=== PATIENT | female | born 1990 | race Asian ===

== ENCOUNTER 2020-08-29 15:42 | Emergency (ER) | payer OTHER, SELFPAY ==
[2020-08-29 16:07] VITALS: BP 136/95; PULSE 100; RESP 16; TEMP 36.8; O2SAT 100; BMI 31.2
--- NOTE | 2020-08-29 16:18 | DI.US.S_ITS ---
PROCEDURE: US OB <= 14 WEEKS FETUS INDICATIONS: POSITIVE AND CRAMPING OUTSIDE/PRIOR DATING DATA: Last menstrual period (LMP): 07/11/2020 . LMP-based estimated date of delivery (PETER): 04/17/2021 . First dating scan (date and location): 08/29/2020 . Estimated date of delivery (PETER) from first dating scan: Not applicable. TECHNIQUE: Real-time scanning was performed of the fetus and maternal pelvic organs, with image documentation. Endovaginal scanning was also performed to better visualize the fetus and maternal ovaries. COMPARISON: None. FINDINGS: Embryo: Intrauterine gestational sac is visualized measuring 4 mm corresponding to 5 weeks 1 day. No pole is identified. No definitive yolk sac. No heart tones. Measurement variability in dating: +/- 4 weeks by LMP, +/- 7 days by mean sac diameter (use before 6 weeks gestation if crown-rump length not able to be measured), +/- 5 days by crown-rump length (up to 8 weeks 6 days gestation), +/- 7 days by crown-rump length (up to 13 weeks 6 days gestation). Maternal organs: Ovaries demonstrate what appears to be a left corpus luteal cyst. In addition, there is appearance of a left intramural fibroid measuring 9.6 x 6.5 x 6.0 mm. Limited images through the kidneys demonstrate no hydronephrosis. REFERENCE THRESHOLD NUMBERS DELETE FROM FINAL REPORT ?-hCG levels and endovaginal scanning: * Should see gestational sac if >6398-8000 IU/L. * Single hCG level, regardless of value cannot distinguish b/w ectopic and IUP. * If hCG level <3000, do not treat for ectopic, to avoid harming possible viable IUP. * If hCG level >3000, most likely non-viable IUP if a sac is not visualized. Get followup hCG AND pelvic US before treating for ectopic . * Any recommended followup: favor short-term US rather than serial hCG levels. Small percentage of ectopics may have hCG changes that mimic IUP or sAb. Gestational age and endovaginal scannin-6-7 rule of thumb * Should see gestational sac by 5 weeks EGA * Should see yolk sac by 6 weeks EGA * Should see embryo by 7 weeks EGA [place] [employer] consensus statement: recommendations for reporting: * Definite ectopic : extra-uterine GS with YS, possibly embryo. * Probably ectopic : extra-uterine sac-like structure or adnexal mass. * of unknown location: no visible IUP or ectopic. o If single hCG level is 3000 or more: viable intrauterine gestation is unlikely but cannot be definitively excluded. o If pt is hemodynamically stable, a single hCG level should not be used to distinguish ectopic from intrauterine , or determining MTX Rx. o hCG and 7-10 day US followup (preferred) until definitive diagnosis. o Most ectopic pregnancies have hCG levels <3000 and often <1000, but is variable and does not predict rupture. * Probable intra-uterine : intra-uterine sac-like structure with no yolk sac or embryo, normal adnexa. * Definite intra-uterine : intra-uterine GS with yolk sac, possible embryo. SRU consensus statement Jul 2012: Findings suspicious but not diagnostic for early failure: * CRL <7 mm and no heart motion. * MGSD 16-24 mm and no embryo seen. * No embryo 7-13 days after US that showed GS without yolk sac. * No embryo 7-10 days after US that showed GS with yolk sac. * Absence of embryo 6 weeks or more after LMP. * Empty amniotic sac adjacent to yolk sac. * Large yolk sac of 7 mm or more. * Small sac size: MGSD minus CRL is < 5 mm. * Sustained bradycardia <80 bpm. Findings diagnostic for early failure: * CRL 7 mm or more and no heart motion. * MGSD 25 mm or more and no embryo seen. * No embryo seen 14 days or more after US showed a GS without yolk sac. * No embryo seen 11 days or more after US showed a GS with yolk sac. Nuchal translucency: abnormal at >3 mm between 10-14 weeks EGA IMPRESSION: 1. Intrauterine gestational sac measuring 5 weeks 1 day. No visualized pole or heart tones. Recommend correlation to beta-hCG levels in short interval imaging follow-up for continued evaluation of possible progression versus blighted ovum. 2. Uterine fibroid. Dictated by: Shanda Richards M.D. on 08/29/2020 at 16:31 Approved by: Shanda Richards M.D. on 08/29/2020 at 16:33
[2020-08-29 16:39] LABS: Add Manual Diff / Slide Review NO; Basophils Absolute Auto 100 /uL (0-100); Basophils Percent Auto 0.7 % (0-2); Eosinophils Absolute Auto 100 /uL (0-450); Hemoglobin 13.4 g/dL (12.0-16.0); Lymphocytes Absolute Auto 1800 /uL (1100-4500); Lymphocytes Percent Auto 23.8 % (25-40); Mean Corpuscular HGB Conc 33.4 % (30-36); Mean Corpuscular Hemoglobin 28.8 PG (26-34); Mean Corpuscular Volume 86.1 fL (80-100); Monocytes Absolute Auto 500 /uL (0-900); Monocytes Percent Auto 6.8 % (3-14); Neutrophils Absolute Auto 5200 /uL (1500-7000); Neutrophils Percent Auto 67.7 % (50-75); Platelet Count 298 X10^3/uL (150-400); Red Blood Cell Count 4.65 X10^6/uL (4.0-5.2); Red Cell Distribution Width 14.4 % (11.6-14.8); White Blood Cell Count 7.7 X10^3/uL (4.5-11.0)
--- NOTE | 2020-08-29 16:41 | ED_ITS ---
HPI - Abdominal Pain <SUE Ahmadi - Last Filed: 08/29/20 18:40> General Chief Complaint: Abdominal Pain Stated Complaint: CRAMPING Time Seen by Provider: 08/29/20 15:56 Source: patient Mode of arrival: Ambulatory History of Present Illness HPI narrative: 30yo female , presents to the emergency department for uterine cramping. She states she had a positive test approximately 3 days ago, she was two weeks late from the start of her menstrual cycle (estimating approximately 6 weeks at this point). Patient states she has a history of having a miscarriage in the past is concerned that this may be happening again. She denies any vaginal bleeding or discharge. Does have some intermittent nausea without vomiting. States the cramping is intermittent and in the middle of her lower abdomen. She denies any other symptoms such as fever, chills, chest pain, shortness of breath, or any other concerns. She has an OB appointment on Sep [address] Virgen. Review of Systems <SUE Ahmadi - Last Filed: 08/29/20 18:40> Review of Systems Narrative: REVIEW OF SYSTEMS: GENERAL: Denies fever or chills. HENT: No head trauma. CARDIOVASCULAR: No chest pain. RESPIRATORY: No shortness of breath or cough. GASTROINTESTINAL: Complains of abdominal pain, see HPI GENITOURINARY: No flank pain, urinary incontinence, hesitancy, frequency, or dysuria. Reports uterine cramping. MUSCULOSKELETAL: No pain, weakness, or trauma. INTEGUMENTARY: No rash. Patient History <SUE Ahmadi - Last Filed: 08/29/20 18:40> Medical History (Updated 08/29/20 @ 17:58 by SUE Ahmadi) No significant medical problems Social History Smoking Status: Never smoker Smoking Status: Never smoker Substance Use Type: does not use Exam <SUE Ahmadi - Last Filed: 08/29/20 18:40> Initial Vital Signs Initial Vital Signs: Vital Signs Temperature 98.2 F 08/29/20 16:07 Pulse Rate 100 H 08/29/20 16:07 Respiratory Rate 16 08/29/20 16:07 Blood Pressure 136/95 H 08/29/20 16:07 Pulse Oximetry 100 08/29/20 16:07 PHYSICAL EXAMINATION: GENERAL: Well groomed, alert, and cooperative. Pleasant, answers questions appropriately. HENT: Normocephalic, atraumatic. Hearing intact. Oral mucosa is pink and moist. EYES: Conjunctiva pink, sclera white, no periorbital swelling. CARDIOVASCULAR: Regular rate. RESPIRATORY: Normal respiratory rate, trachea midline, airway patent. No stridor, nasal flaring or accessory muscle use. . GASTROINTESTINAL: Bowel sounds normoactive. Abdomen is soft and non-tender. No organomegaly, no palpable masses. GENITALURINARY: No flank tenderness. MUSCULOSKELETAL: Normal gait and coordination. Equal tone and mass bilaterally. SKIN: Warm, dry, soft, appropriate color for ethnicity. No lesions, rashes, or wounds to visualized areas. NEURO: Alert and Oriented X 3. Good coordination. <Leonard Macdonald DO - Last Filed: 08/29/20 18:41> Initial Vital Signs Initial Vital Signs: Vital Signs Temperature 98.2 F 08/29/20 16:07 Pulse Rate 100 H 08/29/20 16:07 Respiratory Rate 16 08/29/20 16:07 Blood Pressure 136/95 H 08/29/20 16:07 Pulse Oximetry 100 08/29/20 16:07 Course <SUE Ahmadi - Last Filed: 08/29/20 18:40> Orders Ordered: ED Orders 08/29/20 16:18 US OB <= 14 weeks fetus Stat 08/29/20 16:30 ABO RH Type Stat Complete Blood Count AUTO DIFF Stat Comprehensive Metabolic Panel Stat HCG Quantitative /Beta subunit Stat Vital Signs Vital signs: Vital Signs - 8 hr 08/29/20 16:07 08/29/20 18:07 Temperature 98.2 F Pulse Rate 100 H 90 Respiratory Rate 16 16 Blood Pressure 136/95 H 112/79 Pulse Oximetry 100 99 <DO Nuno Evans Last Filed: 08/29/20 18:41> Orders Ordered: ED Orders 08/29/20 16:18 US OB <= 14 weeks fetus Stat 08/29/20 16:30 ABO RH Type Stat Complete Blood Count AUTO DIFF Stat Comprehensive Metabolic Panel Stat HCG Quantitative /Beta subunit Stat Vital Signs Vital signs: Vital Signs - 8 hr 08/29/20 16:07 08/29/20 18:07 Temperature 98.2 F Pulse Rate 100 H 90 Respiratory Rate 16 16 Blood Pressure 136/95 H 112/79 Pulse Oximetry 100 99 MDM - Abdominal Pain <ANNALISE AhmadiP - Last Filed: 08/29/20 18:40> Medical Records Attestation: I reviewed the patient's medical records. Lab Data Attestation: I reviewed the patient's lab results. Result diagrams: 08/29/20 16:30 08/29/20 16:30 Labs: Lab Results 08/29/20 08/29/20 08/29/20 Range/Units 16:30 16:30 16:30 WBC 7.7 (4.5-11.0) X10^3/uL RBC 4.65 (4.0-5.2) X10^6/uL Hgb 13.4 (12.0-16.0) g/dL Hct 40.0 (36-46) % MCV 86.1 (80-100) fL MCH 28.8 (26-34) PG MCHC 33.4 (30-36) % RDW 14.4 (11.6-14.8) % Plt Count 298 (150-400) X10^3/uL Neut % (Auto) 67.7 (50-75) % Lymph % (Auto) 23.8 L (25-40) % [place] % (Auto) 6.8 (3-14) % Eos % (Auto) 1.0 L (2-4) % Baso % (Auto) 0.7 (0-2) % Neut # (Auto) 5200 (5645-5126) /uL Lymph # (Auto) 1800 (5048-3651) /uL [place] # (Auto) 500 (0-900) /uL Eos # (Auto) 100 (0-450) /uL Baso # (Auto) 100 (0-100) /uL Sodium 138 (137-145) mmol/L Potassium 3.5 (3.4-5.1) mmol/L Chloride 106 (98-107) mmol/L Carbon Dioxide 26 (22-32) mmol/L BUN 12 (7-17) mg/dL Creatinine 0.60 (0.52-1.04) mg/dL Estimated GFR > 60.0 (>60) mL/min BUN/Creatinine Ratio 20.0 (6-22) Glucose 105 H (70-100) mg/dL Calcium 9.4 (8.4-10.2) mg/dL Total Bilirubin 0.5 (0.2-1.3) mg/dL AST 22 (14-36) IU/L ALT 19 (<35) IU/L Alkaline Phosphatase 59 (38-126) U/L Total Protein 8.5 H (6.3-8.2) g/dL Albumin 4.5 (3.5-5.0) g/dL Globulin 4.0 (1.7-4.1) g/dL Albumin/Globulin Ratio 1.1 (1.0-2.8) HCG, Quant 1403 mIU/mL Blood Type O Negative Point of care testing: Point of Care Testing Test Results Positive Urine Dip Bedside Urine Glucose Negative Bedside Urine Bilirubin - Negative Bedside Urine Ketone - Negative Urine Specific [place] 1.015 Bedside Urine Occult Blood - Negative Bedside Urine pH 6.0 Bedside Urine Protein - Negative Bedside Urine Urobilinogen - Negative Bedside Urine Nitrite - Negative Bedside Urine Leukocytes - Negative Esterase Imaging Data US - FAMILY SERVICES SPECIALIST: Radiologist's Impression: [address] [id number] ReportSigned Patient: Cathryn Williamson RMR#: [id number]: 1990Acct:[id number]/Sex: 30 / FDate of Service: 08/29/20Loc: EDAccession Number: [id number] Procedure: US OB <= 14 weeks fetus Ordering Provider: Christine Michael PROCEDURE: US OB <= 14 WEEKS FETUS INDICATIONS: POSITIVE AND CRAMPING OUTSIDE/PRIOR DATING DATA: Last menstrual period (LMP): 07/11/2020 . LMP-based estimated date of delivery (PETER): 04/17/2021 . First dating scan (date and location): 08/29/2020 . Estimated date of delivery (PETER) from first dating scan: Not applicable. TECHNIQUE: Real-time scanning was performed of the fetus and maternal pelvic organs, with image documentation. Endovaginal scanning was also performed to better visualize the fetus and maternal ovaries. COMPARISON: None. FINDINGS: Embryo: Intrauterine gestational sac is visualized measuring 4 mm corresponding to 5 weeks 1 day. No pole is identified. No definitive yolk sac. No heart tones. Measurement variability in dating: +/- 4 weeks by LMP, +/- 7 days by mean sac diameter (use before 6 weeks gestation if crown-rump length not able to be measured), +/- 5 days by crown-rump length (up to 8 weeks 6 days gestation), +/- 7 days by crown-rump length (up to 13 weeks 6 days gestation). Maternal organs: Ovaries demonstrate what appears to be a left corpus luteal cyst. In addition, there is appearance of a left intramural fibroid measuring 9.6 x 6.5 x 6.0 mm. Limited images through the kidneys demonstrate no hydronephrosis. REFERENCE THRESHOLD NUMBERS DELETE FROM FINAL REPORT ?-hCG levels and endovaginal scanning: * Should see gestational sac if >1258-6319 IU/L. * Single hCG level, regardless of value cannot distinguish b/w ectopic and IUP. * If hCG level <3000, do not treat for ectopic, to avoid harming possible viable IUP. * If hCG level >3000, most likely non-viable IUP if a sac is not visualized. Get followup hCG AND pelvic US before treating for ectopic . * Any recommended followup: favor short-term US rather than serial hCG levels. Small percentage of ectopics may have hCG changes that mimic IUP or sAb. Gestational age and endovaginal scannin-6-7 rule of thumb * Should see gestational sac by 5 weeks EGA * Should see yolk sac by 6 weeks EGA * Should see embryo by 7 weeks EGA [place] [employer] consensus statement: recommendations for reporting: * Definite ectopic : extra-uterine GS with YS, possibly embryo. * Probably ectopic : extra-uterine sac-like structure or adnexal mass. * of unknown location: no visible IUP or ectopic. o If single hCG level is 3000 or more: viable intrauterine gestation is unlikely but cannot be definitively excluded. o If pt is hemodynamically stable, a single hCG level should not be used to dist inguish ectopic from intrauterine , or determining MTX Rx. o hCG and 7-10 day US followup (preferred) until definitive diagnosis. o Most ectopic pregnancies have hCG levels <3000 and often <1000, but is variable and does not predict rupture. * Probable intra-uterine : intra-uterine sac-like structure with no yolk sac or embryo, normal adnexa. * Definite intra-uterine : intra-uterine GS with yolk sac, possible embryo. SRU consensus statement Jul 2012: Findings suspicious but not diagnostic for early failure: * CRL <7 mm and no heart motion. * MGSD 16-24 mm and no embryo seen. * No embryo 7-13 days after US that showed GS without yolk sac. * No embryo 7-10 days after US that showed GS with yolk sac. * Absence of embryo 6 weeks or more after LMP. * Empty amniotic sac adjacent to yolk sac. * Large yolk sac of 7 mm or more. * Small sac size: MGSD minus CRL is < 5 mm. * Sustained bradycardia <80 bpm. Findings diagnostic for early failure: * CRL 7 mm or more and no heart motion. * MGSD 25 mm or more and no embryo seen. * No embryo seen 14 days or more after US showed a GS without yolk sac. * No embryo seen 11 days or more after US showed a GS with yolk sac. Nuchal translucency: abnormal at >3 mm between 10-14 weeks EGA IMPRESSION: 1. Intrauterine gestational sac measuring 5 weeks 1 day. No visualized pole or heart tones. Recommend correlation to beta-hCG levels in short interval imaging follow-up for continued evaluation of possible progression versus blighted ovum. 2. Uterine fibroid. Dictated by: Shanda Richards M.D. on 08/29/2020 at 16:31 Approved by: Shanda Richards M.D. on 08/29/2020 at 16:33 MDM Narrative Medical decision making narrative: 30-year-old female presenting to em ergency department after a positive urine test with cramping over the past few days. Differential includes normal cramping versus implantation cramping verses threatened miscarriage. Patient's ultrasound shows an IUP with a gestational sac dated at 5weeks 1 day. No heart beat or pole, however, I discussed with patient that this may be too early in the to be able to see this. We discussed the importance of follow-up for possible repeat ultrasound and HCG. Laboratory work within normal limits, no vaginal bleeding at this time. ED precautions given for new or worsening symptoms. Patient agreed to plan of care verbalized understanding. <Leonard Macdonald, DO - Last Filed: 08/29/20 18:41> Lab Data Labs: Lab Results 08/29/20 08/29/20 08/29/20 Range/Units 16:30 16:30 16:30 WBC 7.7 (4.5-11.0) X10^3/uL RBC 4.65 (4.0-5.2) X10^6/uL Hgb 13.4 (12.0-16.0) g/dL Hct 40.0 (36-46) % MCV 86.1 (80-100) fL MCH 28.8 (26-34) PG MCHC 33.4 (30-36) % RDW 14.4 (11.6-14.8) % Plt Count 298 (150-400) X10^3/uL Neut % (Auto) 67.7 (50-75) % Lymph % (Auto) 23.8 L (25-40) % [place] % (Auto) 6.8 (3-14) % Eos % (Auto) 1.0 L (2-4) % Baso % (Auto) 0.7 (0-2) % Neut # (Auto) 5200 (8167-3327) /uL Lymph # (Auto) 1800 (9557-6399) /uL [place] # (Auto) 500 (0-900) /uL Eos # (Auto) 100 (0-450) /uL Baso # (Auto) 100 (0-100) /uL Sodium 138 (137-145) mmol/L Potassium 3.5 (3.4-5.1) mmol/L Chloride 106 (98-107) mmol/L Carbon Dioxide 26 (22-32) mmol/L BUN 12 (7-17) mg/dL Creatinine 0.60 (0.52-1.04) mg/dL Estimated GFR > 60.0 (>60) mL/min BUN/Creatinine Ratio 20.0 (6-22) Glucose 105 H (70-100) mg/dL Calcium 9.4 (8.4-10.2) mg/dL Total Bilirubin 0.5 (0.2-1.3) mg/dL AST 22 (14-36) IU/L ALT 19 (<35) IU/L Alkaline Phosphatase 59 (38-126) U/L Total Protein 8.5 H (6.3-8.2) g/dL Albumin 4.5 (3.5-5.0) g/dL Globulin 4.0 (1.7-4.1) g/dL Albumin/Globulin Ratio 1.1 (1.0-2.8) HCG, Quant 1403 mIU/mL Blood Type O Negative Point of care testing: Point of Care Testing Test Results Positive Urine Dip Bedside Urine Glucose Negative Bedside Urine Bilirubin - Negative Bedside Urine Ketone - Negative Urine Specific [place] 1.015 Bedside Urine Occult Blood - Negative Bedside Urine pH 6.0 Bedside Urine Protein - Negative Bedside Urine Urobilinogen - Negative Bedside Urine Nitrite - Negative Bedside Urine Leukocytes - Negative Esterase Discharge Plan Departure Patient Disposition: Home Clinical Impression: Qualifiers: Weeks of gestation: less than 8 weeks Qualified Code(s): Z3A.01 - Less than 8 w eeks gestation of Instructions: DI for -- Discomforts and Remedies Activity Restrictions/Additional Instructions: Thank you for entrusting me with your care today. As discussed, a developing gestational sac is seen in your uterus on ultrasound. Your ultrasound estimated due to be at 5 weeks 1 day, no pole or heart tones seen but this is quite early to see any of these features. Your hormone, HCG is 1403. I recommend you call your primary care provider or the OB listed below to schedule a follow-up appointment as often times a repeat blood draw and ultrasound is indicated. Return emergency department for any new or worsening symptoms. Referrals: Vaishnavi Wei MD [Physician] - Stand Alone Forms: Work Release Note <Leonard Macdonald, DO - Last Filed: 08/29/20 18:41> Cosign ED Attending Cosignature Attestation: Dr Macdonald Co-Sign Statement: I was available for consultation during this patient's emergency department visit. This chart is signed by myself for administrative purposes only. I did not have direct contact with this patient during this visit. They were seen independently by the APC.
[2020-08-29 17:08] LABS: Alanine Aminotransferase 19 IU/L (<35); Albumin 4.5 g/dL (3.5-5.0); Albumin Globulin Ratio 1.1 (1.0-2.8); Alkaline Phosphatase 59 U/L (38-126); Aspartate Aminotransferase 22 IU/L (14-36); Bilirubin Total 0.5 mg/dL (0.2-1.3); Blood Urea Nitrogen 12 mg/dL (7-17); Calcium 9.4 mg/dL (8.4-10.2); Carbon Dioxide 26 mmol/L (22-32); Chloride 106 mmol/L (98-107); Estimated Glomerular Filt Rate > 60.0 mL/min (>60); Glucose 105 mg/dL (70-100); HEMOLYSIS < 15 (0-50); Potassium 3.5 mmol/L (3.4-5.1); Sodium 138 mmol/L (137-145); Total Protein 8.5 g/dL (6.3-8.2)
[2020-08-29 17:25] LABS: HCG Quantitative /Beta subunit 1403 mIU/mL
[2020-08-29 18:07] VITALS: BP 112/79; PULSE 90; RESP 16; O2SAT 99
== END 2020-08-29 18:08 | disposition home or self-care (01) ==
PROVIDERS: Emergency Provider Nurse Practitioner
DX: O26.891 Other specified pregnancy related conditions, first trimester (principal); R10.9 Unspecified abdominal pain; Z3A.01 Less than 8 weeks gestation of pregnancy
CPT/HCPCS: 36415; 76801; 80053; 81003; 81025; 84702; 85025; 86900; 86901; 99283; 99284

== ENCOUNTER → 2020-09-12 10:51 | Outpatient (CLI) | payer OTHER, SELFPAY ==
--- NOTE | 2020-09-12 | DI.US.S_ITS ---
PROCEDURE: US OB <= 14 WEEKS FETUS INDICATIONS: INITIAL SIZING AND DATING OUTSIDE/PRIOR DATING DATA: Last menstrual period (LMP): 07/11/2020. LMP-based estimated date of delivery (PETER): 04/17/2021. First dating scan (date and location): This exam. Estimated date of delivery (PETER) from first dating scan: 05/02/2021. TECHNIQUE: Real-time scanning was performed of the fetus and maternal pelvic organs, with image documentation. COMPARISON: [facility], OB <= 14 WEEKS FETUS, 08/29/2020, 16:44. FINDINGS: Embryo: There is an IUP with the estimated gestational age 6 weeks 6 days. cardiac activity is present with heart rate of 132 BPM. There is an ill-defined heterogeneous area left of the gestational sac measuring 4.8 x 2.2 x 2.9 cm, suggesting subchorionic bleed. A small partially calcified fibroid is again noted in the left anterior inferior uterine wall. Measurement variability in dating: +/- 4 weeks by LMP, +/- 7 days by mean sac diameter (use before 6 weeks gestation if crown-rump length not able to be measured), +/- 5 days by crown-rump length (up to 8 weeks 6 days gestation), +/- 7 days by crown-rump length (up to 13 weeks 6 days gestation). Maternal organs: Ovaries are grossly normal. There is a corpus luteal cyst in the left ovary. Limited images through the kidneys demonstrate no hydronephrosis. IMPRESSION: 1. A single living intrauterine gestation with an estimated gestational age of 6 weeks 6 days corresponding to ultrasound PETER 05/02/2021. 2. A vague, 4.8 x 2.2 x 2.9 cm ill-defined heterogeneous area left of the gestational sac may represent a subchorionic hemorrhage. Recommend follow-up imaging to ensure resolution. 3. A small partially calcified fibroid is seen in the anterior left lower uterine wall. Dictated by: Riri Abarca M.D. on 09/12/2020 at 13:17 Approved by: Riri Abarca M.D. on 09/12/2020 at 13:30
== END ==
PROVIDERS: PCP Family Medicine; Referring Provider Family Medicine; Visit Provider Family Medicine
DX: Z36.87 Encounter for antenatal screening for uncertain dates (principal); O34.11 Maternal care for benign tumor of corpus uteri, first trimester; D25.9 Leiomyoma of uterus, unspecified; Z3A.01 Less than 8 weeks gestation of pregnancy
CPT/HCPCS: 76801; 76817

== ENCOUNTER → 2020-11-16 09:46 | Outpatient (CLI) | payer OTHER, MEDICAID, SELFPAY ==
--- NOTE | 2020-11-16 09:47 | DI.US.S_ITS ---
PROCEDURE: US OB LIMITED INDICATIONS: FOLLOW-UP SUB-CHORIONIC HEMORRHAGE OUTSIDE/PRIOR DATING DATA: Last menstrual period (LMP): 07/11/2020. LMP-based estimated date of delivery (PETER): 04/17/2021 . First dating scan (date and location): 08/29/2020, [facility] Estimated date of delivery (PETER) from first dating scan: 04/30/2020 . TECHNIQUE: Real-time scanning was performed of the fetus, with image documentation. COMPARISON: None. FINDINGS: A single living intrauterine gestation is present. Presentation: Transverse with head to maternal right. Placenta: Placental position is anterior , without previa. Amniotic fluid index: Subjectively normal heart rate: 145 beats per minute. Maternal cervical canal: 4.4 cm long. Normal lower limit is 2.5 cm. Estimated gestational age from initial scan: 16 weeks 3 days . No subchorionic hemorrhage noted. IMPRESSION: Living early 2nd trimester intrauterine measuring 16 weeks 3 days. No subchorionic hemorrhage noted. Dictated by: Сергей Gutierrez M.D. on 11/16/2020 at 11:14 Approved by: Сергей Gutierrez M.D. on 11/16/2020 at 11:17
== END ==
PROVIDERS: PCP Family Medicine; Referring Provider Family Medicine; Visit Provider Family Medicine
DX: Z34.92 Encounter for supervision of normal pregnancy, unspecified, second trimester (principal); Z3A.16 16 weeks gestation of pregnancy
CPT/HCPCS: 76815

== ENCOUNTER → 2021-01-08 09:04 | Outpatient (CLI) | payer OTHER, MEDICAID, SELFPAY ==
--- NOTE | 2021-01-08 | DI.US.S_ITS ---
PROCEDURE: US OB >= 14 WEEKS FETUS INDICATIONS: ANATOMY OUTSIDE/PRIOR DATING DATA: Last menstrual period (LMP): 07/11/20. LMP-based estimated date of delivery (PETER): 04/17/21 . First dating scan (date and location): This study . Estimated date of delivery (PETER) from first dating scan: 04/30/21 . TECHNIQUE: Real-time scanning was performed of the fetus, with image documentation and biometric measurements. Endovaginal scanning: Not needed COMPARISON: All prior OB ultrasound studies for this .. FINDINGS: General: A single living intrauterine gestation is present. Presentation: Breech. Placenta: Placental position is anterior , without previa. 13.1 Amniotic fluid index: 13.1 cm, normal range is 5-24 cm. heart rate: 145 beats per minute. Maternal cervical canal: 5.0 cm long. Normal lower limit is 2.5 cm. biometrics: Biparietal diameter: 5.6 cm, 22 weeks 6 days Head circumference: 21.4 cm, 23 weeks 3 days Abdominal circumference: 19.0 cm, 23 weeks 5 days Femur length: 4.0 cm, 22 weeks 6 days Estimated gestational age from initial scan: 24 weeks 0 days Composite gestational age from present scan: 23 weeks 2 days Estimated weight and percentile: 589 g, 17th percentile Measurement variability for biometric dating: +/- 7 days from 14 weeks to 15 weeks 6 days gestation, +/- 10 days from 16 weeks to 21 weeks 6 days gestation, +/- 2 weeks from 22 weeks to 27 weeks 6 days gestation, +/- 3 weeks for 28 weeks gestation or later. weight reference: 4500 g or EFW >90/95% is considered macrosomia or large for gestational age. EFW <10% is small for gestational age. EFW 5% or less is considered intra-uterine growth restriction. Anatomic survey: Neuro: Ventricles are non-dilated at less than 10 mm. Cisterna magna is normal at 3-11 mm. Cerebellum is normal in size and morphology. Nuchal skin fold: Normal at less than 6 mm between 14-21 weeks gestational age. Face: Nose and lips, facial profile are normal. Spine: No evidence for spina bifida. Heart: 4-chambered heart is present, with normal ventricular outflow tracts. Diaphragm: Diaphragm is intact. Stomach: Left-sided stomach is present. Kidneys: No hydronephrosis. Normal is less than 5 mm in 2nd trimester, less than 7 mm in 3rd trimester. Cord: 3-vessel cord has orthotopic insertion. Bladder: Normal in size. Extremities: All 4 extremities identified. IMPRESSION: Single living intrauterine gestation, appropriate interval growth, no anomaly seen, delivery date is projected to be centered on 04/30/21. Dictated by: Sam Kumar M.D. on 01/08/2021 at 13:03 Approved by: Sam Kumar M.D. on 01/08/2021 at 13:07
== END ==
PROVIDERS: PCP Family Medicine; Referring Provider Family Medicine; Visit Provider Family Medicine
DX: Z34.92 Encounter for supervision of normal pregnancy, unspecified, second trimester (principal); Z3A.24 24 weeks gestation of pregnancy
CPT/HCPCS: 76811

== ENCOUNTER → 2021-04-04 20:35 | Outpatient (ROUT) | payer OTHER, MEDICAID, SELFPAY | PROVIDERS: PCP Family Medicine; Visit Provider Family Medicine | DX: Z34.80 Encounter for supervision of other normal pregnancy, unspecified trimester (principal) | CPT/HCPCS: 87081 ==

== ENCOUNTER → 2021-04-06 11:34 | Outpatient (CLI) | payer OTHER, MEDICAID, SELFPAY ==
--- NOTE | 2021-04-06 11:35 | DI.US.S_ITS ---
PROCEDURE: US OB LIMITED INDICATIONS: SIZE < DATES OUTSIDE/PRIOR DATING DATA: Last menstrual period (LMP): 07/11/2021. LMP-based estimated date of delivery (PETER): 04/17/2021 . First dating scan (date and location): 08/29/2020 . Estimated date of delivery (PETER) from first dating scan: 04/30/2021 . TECHNIQUE: Real-time scanning was performed of the fetus, with image documentation and biometric measurements. Endovaginal scanning: No COMPARISON: [facility], OB >= 14 WEEKS FETUS, 01/08/2021, 9:20. [facility], OB LIMITED, 11/16/2020, 10:00. FINDINGS: General: A single living intrauterine gestation is present. Presentation: Vertex. Placenta: Placental position is anterior , without previa. Amniotic fluid index: 13.3 cm, normal range is 5-24 cm. heart rate: 140 beats per minute. Maternal cervical canal: Not well seen. biometrics: Biparietal diameter: 34 weeks 3 days Head circumference: 34 weeks 4 days Abdominal circumference: 35 weeks 3 days Femur length: 34 weeks 5 days Estimated gestational age from initial scan: 36 weeks 4 days Composite gestational age from present scan: 34 weeks 6 days Estimated weight and percentile: 2577 g, 17 percentile Measurement variability for biometric dating: +/- 7 days from 14 weeks to 15 weeks 6 days gestation, +/- 10 days from 16 weeks to 21 weeks 6 days gestation, +/- 2 weeks from 22 weeks to 27 weeks 6 days gestation, +/- 3 weeks for 28 weeks gestation or later. weight reference: 4500 g or EFW >90/95% is considered macrosomia or large for gestational age. EFW <10% is small for gestational age. EFW 5% or less is considered intra-uterine growth restriction. Other: Not applicable. IMPRESSION: Single living IUP redemonstrated and interval growth is within normal limits. Dictated by: Edy ALLEN Interpreted: Linus Mercado MD on 04/06/2021 at 13:07 Transcribed by: MILA on 04/06/2021 at 13:09 Approved by: Mikhail Staley M.D. on 04/06/2021 at 13:35
== END ==
PROVIDERS: PCP Family Medicine; Referring Provider Family Medicine; Visit Provider Family Medicine
DX: Z36.4 Encounter for antenatal screening for fetal growth retardation (principal); Z3A.34 34 weeks gestation of pregnancy
CPT/HCPCS: 76815

== ENCOUNTER 2021-04-25 23:58 | Inpatient (IN) | payer OTHER, MEDICAID, SELFPAY ==
[2021-04-26 00:52] VITALS: BP 129/66
--- NOTE | 2021-04-26 01:11 | P.HPOB_ITS ---
OB HPI Date/Time Date of admission: 04/26/21 Date Patient Seen: 04/26/21 History of Present Condition Chief complaint: REPEAT Narrative: Cathryn Williamson is a 31 year old at 39w1d with PETER of 05/02/21 per first trimester ultrasound. She presents with SROM with thin meconium at 23:00, approximately 2.5 hours ago, last meal was at that time as well. She was originally scheduled for a repeat today. Her course has been complicated by a first-trimester COVID infection that self- resolved. She also had a mild normocytic/normochromic anemia in her 3rd trimester that was treated with iron and GERD that was treated with famotidine. 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 She received RhoGAM at 28 weeks. LABS/IMAGING: ABO 0 negative, antibody negative on 09/08/2020 and 01/15/2021. Rubella immune. Hepatitis-B surface antigen negative. HIV negative.HSV 1 and 2 positive. GC/chlamydia negative. Treponemal antibody negative. Varicella titer positive. Pap smear plus HPV DNA negative on 10/13/2020. Urine culture negative on 10/13/2020. Hemoglobin/hematocrit 13.3/39.7 on 09/08/2020. Repeat hemoglobin/hematocrit 10.8/ 31.5 on 01/15/2021. TSH within normal limits. 1 hour Glucola negative on 01/15/2021. GBS negative on 04/04/2021. NIPT negative, female. ULTRASOUND HISTORY: 08/29/2020, IUP, 5w1d 09/12/2020: IUP, 6w6d, PETER 05/02/2021, subchorionic hemorrhage, uterine fibroid 11/16/2020: 16w3d, subchorionic hemorrhage resolved 01/08/2021: normal anatomy scan 04/06/2021: normal interval growth, MIREYA 13.3 cm, EFW 17th percentile. OBSTETRIC HISTORY: G1: 04/05/2014, 12 WGA, blighted ovum G2: 03/21/2016, 37 WGA via emergent primary secondary to distress wiith vertical abdominal scar and transverse uterine scar G3: Current GYNECOLOGICAL HISTORY: HSV II PAST MEDICAL HISTORY: GERD HSV I COVID infection PAST SURGICAL HISTORY: , 2015 FAMILY HISTORY: No defects. SOCIAL HISTORY: to [place]. Lives with , daughter and brother in law. 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 No alcohol, tobacco, or drugs. [facility] Medical History (Updated 09/13/20 @ 00:01 by ) No significant medical problems Social History Smoking Status: Never smoker Meds Home Medications and Allergies Home Medications Medication Instructions Recorded Confirmed Type Tylenol PM 1 tab PRN PRN 04/26/21 04/26/21 History esomeprazole magnesium 20 mg 20 mg PO DAILY 04/26/21 04/26/21 History capsule,delayed release (Nexium 24HR) ferrous gluconate 324 mg (38 mg 324 mg PO DAILY 04/26/21 04/26/21 History iron) tablet vitamin with calcium 1 tab PO DAILY 04/26/21 04/26/21 History no.72-iron 27 mg-folic acid 1 mg tablet ( Vitamins Plus Low Iron) valacyclovir 500 mg tablet 500 mg PO BID 04/26/21 04/26/21 History Allergies Allergy/AdvReac Type Severity Reaction Status Date / Time No Known Drug Allergies Allergy Verified 04/26/21 00:55 Review of Systems Review of Systems Narrative: Ten point review systems completed and found to be noncontributory except for items mentioned in HPI. Exam Vital Signs (past 8 hours): - 04/26/21 00:52 Blood Pressure 129/66 Narrative Exam Narrative: General: NAD Skin: Color unremarkable, no rash nor lesions HEENT: Neck supple with midline trachea Lungs: CTAB Heart: Normal rate, and regular rhythm, S1, S2 normal, no murmur, click, rub or gallop Abdomen: Gravid, soft, non-tender Extremities: No cord, no edema, no cyanosis Pelvis: Normal female external genitalia Presentation: vertex Cervix: closed, thick, high Monitoring: Variability: Moderate Baseline: 140s Accelerations: Present Decelerations: Absent Contractions: Every 8-18 minutes Strength: Moderate Objective Labs Result Diagrams: 04/26/21 00:45 Assessment and Plan Assessment and Plan Assessment and Plan narrative: 1. IUP at 39w1d 2. 3. SROM, thin meconium 4. Desire for repeat 5. Rh negative, status post Rhogam at 28 WGA 6. Anemia, gestational, treated with iron 7. HSV 2, treated with valacyclovir from 36 WGA 8. GERD Plan: Admit to Labor and delivery with routine orders. Plan for repeat . Patient is not in labor, heart rate is category 1. As patient has just eaten, will delay until 05:30 to allow for six hours of NPO. Will closely monitor during this time and proceed more expediently if needed. Questions answered, appropriate consents will be signed.
[2021-04-26 01:12] LABS: Add Manual Diff / Slide Review NO; Basophils Absolute Auto 0 /uL (0-100); Basophils Percent Auto 0.4 % (0-2); Eosinophils Absolute Auto 200 /uL (0-450); Eosinophils Percent Auto 1.9 % (2-4); Hematocrit 35.8 % (36-46); Hemoglobin 12.2 g/dL (12.0-16.0); Lymphocytes Absolute Auto 2200 /uL (1100-4500); Lymphocytes Percent Auto 24.7 % (25-40); Mean Corpuscular HGB Conc 34.1 % (30-36); Mean Corpuscular Hemoglobin 30.2 PG (26-34); Mean Corpuscular Volume 88.5 fL (80-100); Monocytes Absolute Auto 700 /uL (0-900); Monocytes Percent Auto 8.5 % (3-14); Neutrophils Absolute Auto 5700 /uL (1500-7000); Neutrophils Percent Auto 64.5 % (50-75); Platelet Count 282 X10^3/uL (150-400); Red Blood Cell Count 4.04 X10^6/uL (4.0-5.2); Red Cell Distribution Width 14.1 % (11.6-14.8); White Blood Cell Count 8.8 X10^3/uL (4.5-11.0)
--- NOTE | 2021-04-26 02:03 | P.OP_ITS ---
Operative Date/Time/Diagnoses Date of procedure: 04/26/21 Procedure & Clinicians Same procedure as scheduled: Yes Operative Notes Prosthetic devices, grafts, tissues, transplants, or devices: Pre-operative Diagnosis: 1. IUP at 39w1d 2. 3. SROM, thin meconium 4. Desire for repeat 5. Anemia, gestational 6. Rh negative 7. GERD 8. HSV II, treated with valacyclovir Post-operative Diagnosis: Same Procedure: Repeat low transverse section Surgeon: Kelsi Mcelroy M.D. Child Psychology Teacher: Jayna Virgen MD Anesthesia: Spinal Complications: None Estimated blood loss: 300 cc Fluids: 1700 cc crystalloid Urine output: 50 cc clear urine at end of procedure. Indications: 31-year-old at 39w1d. Findings: Viable female infant in vertex presentation. Thin meconium fluid with one nuchal cords. Apgars 8 and 9. Weight 5 lb 9.2 oz.. Normal uterus tubes and ovaries. Procedures: The patient was taken to the operating room where spinal anesthesia was found to be adequate. She was then prepared and draped in the normal sterile fashion in the dorsal supine position with a leftward tilt. A Pfannenstiel skin incision was then made with a scalpel and carried through to the underlying layer of fascia. The fascia was incised in the midline and the incision extended laterally with Mukherjee scissors. The superior aspect of the fascial incision was then grasped with the Carolina clamps elevated, and the underlying rectus muscles dissected off bluntly. Attention was then turned to the inferior aspect of this incision, which in a similar fashion, was grasped, tented up with the Carolina clamps, and the rectus muscle dissected off bluntly. The rectus muscles were then in the midline, and the peritoneum identified, tented up, and entered sharply with Metzenbaum scissors. The pe ritoneal incision was then extended superiorly and inferiorly with good visualization of the bladder. The bladder blade was then inserted and the vesicouterine peritoneum identified, grasped with pickups, and entered sharply with Metzenbaum scissors. This incision was then extended laterally and the bladder flap created digitally. The bladder blade was then reinserted and the lower uterine uterine segment incised in a transverse fashion with the scalpel. The uterine incision was then extended laterally digitally. The bladder blade was removed and the infant's head delivered atraumatically. The nose and mouth were suctioned with DeLee suction trap and the cord clamped and cut. They infant was handed off to the nurses in attendance. The placenta was then removed manually; the uterus exteriorized, and cleared of all clots and debris. The uterine incision was repaired with 0 chromic in a running locking fashion. A second layer of the same suture was used to obtain excellent hemostasis. The bladder flap was repaired with 3-0 Vicryl in a running stitch and the uterus returned to the abdomen. The gutters were cleared of all clots and the peritoneum closed with 3-0 Vicryl. The rectus was loosely approximated using 0 chromic. The fascia was reapproximated with 0 Vicryl in a running fashion. The subcutaneous layer was closed with 2-0 chromic. The skin was closed with sutures. The patient tolerated the procedure well. Sponge lap and needle counts were correct x2. 2 g of Ancef was given at beginning a procedure. The patient was taken to the recovery room in stable condition.
[2021-04-26 02:25] LABS: COVID19 - ADMIT (NP swab/PCR) Negative (Negative)
[2021-04-26] MEDS: LACTATED RINGERS 1,000 ML 100 ML IV ×3 (05:00→08:23)
[2021-04-26] MEDS: CEFAZOLIN 1 GM VIAL 2 GM IV (05:33)
[2021-04-26] MEDS: ACETAMINOPHEN IV 1,000 MG/100 ML VIAL 400 MG IV (05:45)
--- NOTE | 2021-04-26 05:46 | SUR.OPER ---
Supine on Padded OR bed, head on pillow, safety belt at thigh, arms secured on padded arm boards at <90 degrees abduction. Bump under right buttock. Legs uncrossed with pillow under knees, gel pad to heels, tape over blanket to lower legs.
--- NOTE | 2021-04-26 05:54 | SUR.OPER ---
FHT 134 pre-op. Cord blood x 2 and placenta to OB with OB RN. TOB live female @ 7507
[2021-04-26 06:51] VITALS: BP 106/64; PULSE 84; RESP 16; TEMP 36.2; O2SAT 100
[2021-04-26 06:56] VITALS: BP 101/52; PULSE 78; RESP 20; O2SAT 100
[2021-04-26 07:02] VITALS: BP 109/56; PULSE 82; RESP 20; O2SAT 100
[2021-04-26] MEDS: OXYCODONE IR 5 MG TABLET PO (07:19)
[2021-04-26 07:20] VITALS: BP 112/78; PULSE 89; RESP 20; TEMP 36.5; O2SAT 100
--- NOTE | 2021-04-26 07:56 | SUR.PHASEI ---
Late entry: Pt arrived to PACU, drowsy, easily arousable and soon totally awake. Talking on cell phone and looking at baby pictures. Peripad and chux changed after aida area cleaned, pt denied nausea had been tolerating ice chips and water c/o pain to lower abdomen, wanting pain pill, applesauce tolerated, medicated with oxycodone. O2 on per 2/l per pt and Dr. Navarro's request, room air sats 100%. Pt brought to room1, aida area/fundus checked, moved pt up in bed and raise HOB more to recieve baby, pt c/o nausea, dry heaved, cool wash cloth to head, nausea resolving when I left pt with BCRN.
[2021-04-26] MEDS: LANOLIN OINT 7 GM 1 APPLIC TOP (11:25)
[2021-04-26 12:46] VITALS: TEMP 36.7
[2021-04-26] MEDS: KETOROLAC 30 MG/ML VIAL IV ×2 (12:46→21:06)
[2021-04-26] MEDS: ACETAMINOPHEN 325 MG TABLET 650 MG PO (21:06)
[2021-04-27] MEDS: KETOROLAC 30 MG/ML VIAL IV (03:16)
[2021-04-27 06:57] LABS: Hematocrit 28.5 % (36-46); Hemoglobin 9.7 g/dL (12.0-16.0)
--- NOTE | 2021-04-27 07:34 | PM.PNPO.1 ---
Subjective Subjective Date Patient Seen: 04/27/21 Time Patient Seen: 07:34 Interval history: Patient is doing well this morning. Pain controlled with ibuprofen. She has been up to chair. Tolerating general diet, no nausea or vomiting. Desires to take a shower this morning. Breast-feeding well. Lochia less than menses. Positive flatus. Exam Vital Signs (past 8 hours): Oxygen Delivery Method Nasal Cannula Oxygen Flow Rate 2 Narrative Exam Narrative: General: NAD Skin: Color unremarkable, no rash nor lesions HEENT: Neck supple with midline trachea Lungs: CTAB Heart: Normal rate and regular rhythm, S1, S2 normal, no murmurs, click, rub or gallop Abdomen: FF, U-1, soft, non-tender, +BS. Incision with dressing in place, c/d/i. Extremities: No edema, no cyanosis Objective Labs Result Diagrams: 04/27/21 06:43 Labs: Laboratory Results - last 24 hr 04/27/21 06:43 Hgb 9.7 L Hct 28.5 L PFSH Medical History (Updated 09/13/20 @ 00:01 by ) No significant medical problems Social History Smoking Status: Never smoker Assessment & Plan Post-op Postoperative Procedures: Procedures Operation Date: 04/26/21 13:30 Actual Procedure Side Surgeon p Repeat Section Kelsi Mcelroy MD Postoperative status narrative: 1. 31 yo 2. Status post R/LTCS 39w1d 3. POD #1 4. Rh negative 5. Anemia, gestational Plan: Routine post- care. Rhogam today. Anticipate discharge to home tomorrow.
[2021-04-27] MEDS: PRENATAL VIT,CALC/IRON/FOLIC 1 TABLET 1 TAB PO (09:19)
[2021-04-27] MEDS: IBUPROFEN 600 MG TABLET PO ×3 (09:19→22:16)
[2021-04-27 22:16] VITALS: TEMP 36.5
[2021-04-27 22:17] VITALS: TEMP 36.5
[2021-04-27] MEDS: ACETAMINOPHEN 325 MG TABLET 650 MG PO (22:17)
[2021-04-28] MEDS: ACETAMINOPHEN 325 MG TABLET 650 MG PO ×2 (03:55→11:08)
[2021-04-28] MEDS: IBUPROFEN 600 MG TABLET PO ×2 (03:55→11:09)
--- NOTE | 2021-04-28 10:44 | PM.OBDS.1 ---
Discharge Providers Provider Date of admission: 04/25/21 23:58 Discharge Date: 04/28/21 Primary care physician: Jayna Virgen MD Consults: 04/26/21 07:13 Consult to [employer] Routine Comment: Discharge provider: Kelsi Mcelroy MD Summary Hospital Course Date Patient Seen: 04/28/21 Time Patient Seen: 11:30 Diagnoses: 1. 31 yo 2. Status post R/LTCS 39w1d 3. POD #2 4. Rh negative 5. Anemia, gestational Hospital Course: Unremarkable. Mother is well, milk just came in this morning. Pain controlled with tylenol and ibuprofen. Tolerating full diet with no nausea or vomiting. Ambulating well. Lochia less than menses. ABO is O positive, NESSA negative. She received Rhogam within 72 hours . On day of discharge, she is afebrile with stable vital signs throughout. Time Spent with Patient Time attestation: Total time spent providing and/or coordinating discharge services: 35 minutes Objective Labs Result Diagrams: 04/27/21 06:43 Exam Vital Signs (past 8 hours): Oxygen Delivery Method Nasal Cannula Oxygen Flow Rate 2 Narrative Exam Narrative: General: NAD Skin: Color unremarkable, no rash nor lesions HEENT: Neck supple with midline trachea Lungs: CTAB Heart: Normal rate and regular rhythm, S1, S2 normal, no murmurs, click, rub or gallop Abdomen: FF, U-1, soft, non-tender, +BS, incision c/d/i. Extremities: No edema, no cyanosis Discharge Plan Discharge Plan Patient Disposition: Home Discharge orders & Medications Prescriptions: New ibuprofen 600 mg Tablet 600 mg PO Q6H PRN (Reason: Fever/Mild Pain (1-3)) Qty: 45 RF: 1 docusate sodium 250 mg capsule 250 mg PO BID PRN (Reason: constipation) Qty: 30 RF: 0 Continued Vitamin Plus Low Iron 27 mg iron- 1 mg tablet 1 tab PO DAILY RF: 0 Tylenol PM 1 tab PRN PRN (Reason: Sleep) RF: 0 esomeprazole magnesium [Nexium 24HR] 20 mg capsule,delayed release(DR/EC) 20 mg PO DAILY RF: 0 Discontinued ferrous gluconate 324 mg (38 mg iron) tablet 324 mg PO DAILY RF: 0 valacyclovir 500 mg tablet 500 mg PO BID RF: 0 Follow up/Referrals: Jayna Virgen MD [Primary Care Provider] - Diet/Activity/Treatments Diet: Diet as Tolerated Activity: 1. Routine care 2. No driving for 2 weeks. 3. Call or return for uncontrolled pain, fever, intractable nausea or vomiting, trouble with urination, heavy vaginal bleeding greater than 1 pad per hour, suicidal/homicidal thoughts, signs or symptoms of infection, or any other concerns. Skin/Wound/Dressing Care Report to your healthcare provider any signs of infection, such as:: chills, fever, increased pain and unusual drainage Other wound treatment: Wash every day with soap/water. Staple removal on Friday with Dr. Virgen. Visit Report/Discharge Packet Stand Alone Forms: Discharge: Care Discharge Data Primary Care Provider: Jayna Virgen
[2021-04-28] MEDS: RHO(D) IMMUNE GLOBULIN 1,500 UNIT SYRINGE 1500 UNIT IM (11:02)
[2021-04-28] MEDS: PRENATAL VIT,CALC/IRON/FOLIC 1 TABLET 1 TAB PO (11:09)
== END 2021-04-28 13:12 | disposition home or self-care (01) | DRG 540 ==
PROVIDERS: Admitting Provider Student in an Organized Health Care Education/Training Program; PCP Family Medicine; Referring Provider Student in an Organized Health Care Education/Training Program; Visit Provider Student in an Organized Health Care Education/Training Program
PROC: 10D00Z1 Extraction of Products of Conception, Low, Open Approach (ICD-10-PCS; CPT 59514; principal; 2021-04-26 05:30)
DX: O99.02 Anemia complicating childbirth (principal); D64.89 Other specified anemias; Z3A.39 39 weeks gestation of pregnancy; Z37.0 Single live birth; O77.0 Labor and delivery complicated by meconium in amniotic fluid; O99.891 Other specified diseases and conditions complicating pregnancy; K21.9 Gastro-esophageal reflux disease without esophagitis; O98.52 Other viral diseases complicating childbirth; B00.9 Herpesviral infection, unspecified; Z20.822 Contact with and (suspected) exposure to COVID-19; Z86.16 Personal history of COVID-19
CPT/HCPCS: 36415; 59050; 85014; 85018; 85025; 85461; 86850; 86900; 86901; 87635; C9803; J0131; J0690; J1885; J2274; J2405; J2590; J2790; J3010

== ENCOUNTER → 2022-05-27 09:35 | Outpatient (CLI) | payer OTHER, MEDICAID, SELFPAY ==
[2022-05-27 11:07] LABS: COVID19 -Nasal RAPID Negative (Negative)
== END ==
PROVIDERS: PCP Family Medicine; Visit Provider Surgery
DX: Z01.812 Encounter for preprocedural laboratory examination (principal); Z20.822 Contact with and (suspected) exposure to COVID-19
CPT/HCPCS: 87635; C9803

== ENCOUNTER 2022-05-28 12:49 | Day surgery (SDC) | payer OTHER, MEDICAID, SELFPAY ==
[2022-05-21 12:34] VITALS: BMI 31.8
--- NOTE | 2022-05-28 | PATH_ITS ---
[facility] Accession Number: [id number] . 01 Material submitted: . sacrum - SACRAL CYST . 01 Clinical history: . EXCISIONAL BIOPSY OF SACRAL LIPOMA . 01 Diagnosis: Sacral Cyst, Excisional Biopsy: Epidermal inclusion cyst. MRV 05/30/2022 0844 Local . 01 Electronically signed: . Neo Andrew MD, Dermatopathologist NPI- [id number] . 01 Gross description: . Received in formalin labeled with the patient's name and sacral cyst consists of a eller-mike smooth disrupted cystic structure with a small amount of attached adipose all measuring 4.6 x 4.5 x 3.1 cm. A full-thickness defect is identified measuring 1.1 cm in greatest dimension. The external surface is inked blue. Serial sectioning reveals a thin smooth-walled cystic structure filled with brown friable grumous material. [employer] sections are submitted in cassettes A1-A2. ([id number]) /MRV 05/29/2022 1054 Local . 01 Pathologist provided ICD-10: L72.0 . 01 CPT . 528895 Specimen Comment: A courtesy copy of this report has been sent to [phone] Performed at: 01 [facility] [address] [place] [address] [address] [facility], [place], [place] [id number] MD Deni Rubin MD Phone: [phone]
[2022-05-28 13:10] VITALS: BMI 31.8
[2022-05-28 13:15] VITALS: BP 129/91; PULSE 86; RESP 16; TEMP 37.3; O2SAT 96
--- NOTE | 2022-05-28 14:02 | PM.HP.1 ---
History of Present Illness History of Present Illness Date Patient Seen: 05/28/22 Time Patient Seen: 14:02 Chief complaint: Excisional Biopsy of Sacral Lipoma Narrative: Cathryn is here for excision of her sacral soft tissue mass, most likely lipoma. See the office note from April for details. She would like to have the procedure done with local anesthetic only. Patient History Medical History COVID-19 virus infection (10/23/20) Easy bruisability GERD (gastroesophageal reflux disease) Headache, migraine No significant medical problems Surgical History Hx of emergency section (03/21/16) Hx of emergency section (04/26/21) Family & Social History Social History: household members spouse,children Tobacco & Substance use: Smoking Status Never smoker alcohol intake never Substance Use Type does not use Meds Home Medications and Allergies Home Medications Medication Instructions Recorded Confirmed Type multivitamin 1 tab DAILY 05/28/22 05/28/22 History Allergies Allergy/AdvReac Type Severity Reaction Status Date / Time No Known Drug Allergies Allergy Verified 05/28/22 10:58 Exam Vital Signs (past 8 hours): - 05/28/22 13:15 Temperature 99.2 F Pulse Rate 86 Respiratory Rate 16 Blood Pressure 129/91 H Pulse Oximetry 96 Oxygen Delivery Method Room Air Oxygen Delivery Method Room Air Narrative Exam Narrative: There is a 6 x 8 cm soft mobile mass over the sacrum just above the gluteal cleft. Assessment & Plan Assessment and plan (1) Lipoma of back: Status: Acute Plan We will plan for excisional biopsy of the sacral mass in the operating room with local anesthetic COVID-19 COVID-19 status: Negative Result date/Date tested (Pos, Neg/Pending): 05/27/22 Time Spent With Patient Critical Care time: I spent a total of [] minutes of critical care time on this patient's care today; this time is exclusive of procedural time.
[2022-05-28] MEDS: LIDOCAINE 1% 20 ML INJ (14:30)
[2022-05-28] MEDS: EPINEPHrine 1 MG/ML 0.2 MG INJ (14:30)
--- NOTE | 2022-05-28 14:45 | SUR.OPER ---
Prone on padded OR bed, head in foam head support, gel chest rolls, gel pad under knees, pillow under lower legs, toes free of pressure, arms supported on padded arm boards at <90 degrees abduction. Safety belt at thigh. Patient awake for procedure(local only).
[2022-05-28 15:21] VITALS: BP 120/82; PULSE 81; RESP 16; TEMP 37.2; O2SAT 97
--- NOTE | 2022-05-28 15:21 | PM.OP.1 ---
Operative Date/Time/Diagnoses Date of procedure: 05/28/22 Time of procedure: 15:21 Pre-op diagnosis: Sacral mass Post-op diagnosis: other (Sacral cystic structure) Procedure & Clinicians Procedure: Excisional biopsy of sacral cyst Same procedure as scheduled: Yes Surgeon: Silverio Hernandez Anesthesia Type: Local Operative Notes Procedure in detail: The patient was brought to the operating room and placed on the table in the prone position. The sacrum was prepped and draped in the usual fashion and a time-out was performed. The mass was about 6 cm x 5 cm with the long axis oriented axially. We started with lidocaine with epinephrine into the skin and subcutaneous tissue. We then made an 8 cm incision over the mass. We did get into the cystic structure which was under high pressure. Thick viscous fluid was extruded from the cyst. Some of this was collected and sent. With a cyst partially decompressed we then dissected along the cyst wall circumferentially. We injected additional lidocaine as we went into the deeper layers. The cyst wall was completely excised. We irrigated the wound with saline. And close the skin in layers using multiple interrupted 3-0 Vicryl dermal sutures followed by a running 4 Monocryl subcuticular closure. EBL: 10 mL Specimen: Cyst and contents Post-operative Condition: stable Disposition: PACU
--- NOTE | 2022-05-28 15:24 | SUR.PHASEII ---
Pt arrived to Phase 2, awake, pt stated pain just tender, denied need for pain meds. Awaiting d/c orders.
[2022-05-28 15:50] VITALS: BP 119/71; PULSE 79; RESP 16; TEMP 37.3; O2SAT 98
--- NOTE | 2022-05-28 15:54 | SUR.PHASEII ---
Pt ready to go, left in stable condition.
== END 2022-05-28 15:45 | disposition home or self-care (01) ==
PROVIDERS: PCP Family Medicine; Referring Provider Surgery; Visit Provider Surgery
PROC: (CPT 11406; principal; 2022-05-28 14:15)
DX: L72.0 Epidermal cyst (principal); M54.59 Other low back pain
CPT/HCPCS: 11406; 12034; 81025; J0171

== ENCOUNTER → 2023-02-05 10:58 | Outpatient (CLI) | payer OTHER, MEDICAID, SELFPAY ==
--- NOTE | 2023-02-05 | DI.US.S_ITS ---
PROCEDURE: US PELVIC COMPLETE INDICATIONS: DUB TECHNIQUE: Real-time scanning was performed of the pelvic organs, with image documentation. Additional endovaginal scanning was necessary due to incomplete visualization of the adnexal and endometrial structures by transabdominal scanning. COMPARISON: None. FINDINGS: Uterus: Uterus is anteverted and normal in size at 7.7 x 4.0 x 5.8 cm. The myometrium is homogeneous. The endometrium measures 13.0 mm combined thickness. Ovaries: The right ovary measures 3.3 x 2.1 x 1.9 cm, with a calculated ovarian volume of 6.8 cc. The left ovary measures 3.1 x 2.5 x 2.2 cm, with a calculated ovarian volume of 9.0 cc. The ovaries have a normal sonographic appearance. Less than 12 follicles can be seen in each ovary. No adnexal masses are seen. Other: No pathologic free abdominal or pelvic fluid. IMPRESSION: Unremarkable ultrasound the pelvis Approved by: Darrius Carbajal M.D. on 02/05/2023 at 14:01
== END ==
PROVIDERS: PCP Family Medicine; Referring Provider Family Medicine; Visit Provider Family Medicine
DX: N93.8 Other specified abnormal uterine and vaginal bleeding (principal)
CPT/HCPCS: 76830; 76856

== ENCOUNTER → 2023-08-25 15:40 | Outpatient (CLI) | payer OTHER, MEDICAID, SELFPAY ==
--- NOTE | 2023-08-25 | DI.US.S_ITS ---
PROCEDURE: US OB <= 14 WEEKS FETUS INDICATIONS: DATING AND VIABILITY OUTSIDE/PRIOR DATING DATA: Last menstrual period (LMP): 06/12/2023. LMP-based estimated date of delivery (PETER): 03/18/2024. First dating scan (date and location): Today's exam. Estimated date of delivery (PETER) from first dating scan: 04/04/2024. TECHNIQUE: Real-time scanning was performed of the fetus and maternal pelvic organs, with image documentation. Endovaginal scanning was also performed to better visualize the fetus and maternal ovaries. COMPARISON: [facility], OB <= 14 WEEKS FETUS, 09/12/2020, 11:09. FINDINGS: Intrauterine gestational sac visualized. Embryo: Middle [place]-rump length measures 1.7 cm, corresponding to 8 weeks 1 day. Heart rate: 158 beats per minute Maternal organs: Ovaries demonstrate a left-sided corpus luteum. IMPRESSION: Single living intrauterine at 8 weeks 1 day, PETER of 04/04/2024. We strive to produce accurate, complete, and clear reports of imaging services. To assist us in improving patient care, this report was composed using standard report templates and voice recognition software. Therefore, it may contain abnormal punctuation, insertions and/or omissions. Occasional wrong-word or sound-alike substitutions may occur. Though we review the report and make efforts to correct it, we do recommend that the report be read carefully in proper context to recognize any text inaccuracies. Dictated by: Artur Marie M.D. on 08/25/2023 at 16:46 Approved by: Artur Marie M.D. on 08/25/2023 at 16:47
== END ==
PROVIDERS: PCP Family Medicine; Referring Provider Family Medicine; Visit Provider Family Medicine
DX: Z32.00 Encounter for pregnancy test, result unknown (principal); N91.2 Amenorrhea, unspecified
CPT/HCPCS: 76801; 76817

== ENCOUNTER → 2023-09-10 09:46 | Outpatient (CLI) | payer OTHER, MEDICAID, SELFPAY ==
[2023-09-10 12:19] LABS: Urine N gonorrhoeae NOT DETECTED
[2023-09-10 12:52] LABS: Urine Chlamydia NOT DETECTED
== END ==
PROVIDERS: PCP Family Medicine; Visit Provider Student in an Organized Health Care Education/Training Program
DX: Z34.81 Encounter for supervision of other normal pregnancy, first trimester (principal); Z3A.10 10 weeks gestation of pregnancy
CPT/HCPCS: 87491; 87591

== ENCOUNTER → 2023-11-07 10:53 | Outpatient (CLI) | payer OTHER, MEDICAID, SELFPAY ==
[2023-11-07 12:06] LABS: Add Manual Diff / Slide Review NO; Basophils Absolute Auto 0 /uL (0-100); Basophils Percent Auto 0.3 % (0-2); Eosinophils Absolute Auto 100 /uL (0-450); Eosinophils Percent Auto 1.5 % (2-4); Hematocrit 34.5 % (36-46); Lymphocytes Absolute Auto 1900 /uL (1100-4500); Lymphocytes Percent Auto 23.1 % (25-40); Mean Corpuscular HGB Conc 34.7 % (30-36); Mean Corpuscular Volume 86.6 fL (80-100); Monocytes Absolute Auto 400 /uL (0-900); Monocytes Percent Auto 4.9 % (3-14); Neutrophils Absolute Auto 5900 /uL (1500-7000); Neutrophils Percent Auto 70.2 % (50-75); Platelet Count 301 X10^3/uL (150-400); Red Blood Cell Count 3.98 X10^6/uL (4.0-5.2); Red Cell Distribution Width 12.3 % (11.6-14.8); White Blood Cell Count 8.4 X10^3/uL (4.5-11.0)
[2023-11-07 12:46] LABS: Hepatitis B Surface Antigen NEGATIVE s/c (NEGATIVE); Rubella Antibody IgG 65.2 IU/mL (>15)
[2023-11-07 12:50] LABS: Hepatitis B Surface Antigen NEGATIVE s/c (NEGATIVE)
[2023-11-07 13:03] LABS: HIV 1 & 2 Ab/Ag 4th Gen Combo NEGATIVE (NEGATIVE); Hep C Virus Ab w/Reflex Quant NEGATIVE s/c (NEGATIVE)
[2023-11-07 15:30] LABS: Urine N gonorrhoeae NOT DETECTED
[2023-11-07 15:44] LABS: Urine Chlamydia NOT DETECTED
[2023-11-08 09:30] LABS: RPR Screen Non Reactive (Non Reactive); Varicella IgG Antibody 551 index (Immune >165)
[2023-11-10 15:29] LABS: AFP, Serum 42.4 ng/mL (.); Estriol, Free 1.58 ng/mL (.); Inhibin A, MoM 0.89 (.); Maternal Ethnicity Other (.); Maternal Weight 181 lbs (.); Number of Fetuses No (.); OSBR Risk 1 IN 10000 (.); Results Report (.); Test Results *Screen Negative* (.); hCG, MoM 1.08 (.); hCG, Serum 23305 mIU/mL (.)
[2023-11-17 08:53] LABS: HSV 2 IGG AB 2.41
== END ==
PROVIDERS: Family Medicine; PCP Family Medicine; Referring Provider Student in an Organized Health Care Education/Training Program; Visit Provider Student in an Organized Health Care Education/Training Program
DX: O34.219 Maternal care for unspecified type scar from previous cesarean delivery (principal); Z3A.17 17 weeks gestation of pregnancy
CPT/HCPCS: 36415; 80055; 82105; 82677; 84702; 86336; 86695; 86696; 86787; 86803; 86850; 86900; 86901; 87077; 87086; 87186; 87340; 87389; 87491; 87591

== ENCOUNTER → 2023-11-18 10:26 | Outpatient (CLI) | payer OTHER, MEDICAID, SELFPAY ==
--- NOTE | 2023-11-18 10:27 | DI.US.S_ITS ---
PROCEDURE: US OB >= 14 WEEKS FETUS INDICATIONS: 20 wk anatomy OUTSIDE/PRIOR DATING DATA: Last menstrual period (LMP): 06/12/23. LMP-based estimated date of delivery (PETER): 03/18/23. First dating scan (date and location): 08/25/23. Estimated date of delivery (PETER) from first dating scan: 04/04/24. TECHNIQUE: Real-time scanning was performed of the fetus, with image documentation and biometric measurements. Endo COMPARISON: [facility], OB >= 14 WEEKS FETUS, 01/08/2021, 9:20. [facility], OB <= 14 WEEKS FETUS, 09/10/2023, 9:34. FINDINGS: General: A single living intrauterine gestation is present. Presentation: transverse. Placenta: Placental position is a anterior , without previa. Amniotic fluid index: 14.5 cm, normal range is 5-24 cm. Single deepest vertical pocket is 5.3 cm. heart rate: 150 beats per minute. Maternal cervical canal: 3.3 cm long. Normal lower limit is 2.5 cm. biometrics: Biparietal diameter: 4.5 cm 19 weeks 4 days Head circumference: 17.6 cm 20 weeks 0 days Abdominal circumference: 15.7 cm 20 weeks 6 days Femur length: 3.6 cm 21 weeks 2 days Clinically estimated gestational age: 20 weeks 2 days Composite gestational age from present scan: 20 weeks 3 days Estimated weight and percentile: 385 grams, 79th percentile Anatomic survey: Neuro: Ventricles are non-dilated at less than 10 mm. Cisterna magna is normal at 3-11 mm. Cerebellum is normal in size and morphology. Nuchal skin fold: Normal at less than 6 mm between 14-21 weeks gestational age. Face: Nose and lips, facial profile are normal. Spine: No evidence for spina bifida. Heart: 4-chambered heart is present, with normal ventricular outflow tracts. Diaphragm: Diaphragm is intact. Stomach: Left-sided stomach is present. Kidneys: No hydronephrosis. Normal is less than 5 mm in 2nd trimester, less than 7 mm in 3rd trimester. Cord: 3-vessel cord has orthotopic insertion. Bladder: Normal in size. Extremities: All 4 extremities identified. IMPRESSION: Single live intrauterine with gestational age today of 20 weeks 3 days. Anatomy is within normal limits. We strive to produce accurate, complete, and clear reports of imaging services. To assist us in improving patient care, this report was composed using standard report templates and voice recognition software. Therefore, it may contain abnormal punctuation, insertions and/or omissions. Occasional wrong-word or sound-alike substitutions may occur. Though we review the report and make efforts to correct it, we do recommend that the report be read carefully in proper context to recognize any text inaccuracies. Dictated by: Shanda Richards M.D. on 11/18/2023 at 14:38 Approved by: Shanda Richards M.D. on 11/18/2023 at 14:43
== END ==
LOC: US 10:27
PROVIDERS: PCP Family Medicine; Referring Provider Obstetrics & Gynecology; Visit Provider Obstetrics & Gynecology
DX: Z34.82 Encounter for supervision of other normal pregnancy, second trimester (principal); Z3A.20 20 weeks gestation of pregnancy
CPT/HCPCS: 76811

== ENCOUNTER → 2023-12-24 13:54 | Outpatient (CLI) | payer OTHER, MEDICAID, SELFPAY ==
[2023-12-24 15:44] LABS: Hematocrit 32.5 % (36-46); Hemoglobin 11.1 g/dL (12.0-16.0)
[2023-12-24 16:05] LABS: GTT (PREG) 1 Hour PP 50gm Dose 157 mg/dL (76-139)
== END ==
PROVIDERS: PCP Family Medicine; Referring Provider Obstetrics & Gynecology; Visit Provider Obstetrics & Gynecology
DX: O26.899 Other specified pregnancy related conditions, unspecified trimester (principal); Z3A.26 26 weeks gestation of pregnancy; Z67.91 Unspecified blood type, Rh negative
CPT/HCPCS: 82950; 85014; 85018; 86850

== ENCOUNTER → 2024-01-19 10:10 | Outpatient (CLI) | payer OTHER, MEDICAID, SELFPAY ==
[2024-01-19 11:33] LABS: Glucose Fasting Gestational 94 mg/dL (76-95)
[2024-01-19 13:35] LABS: Glucose 1 Hour Gest 193 mg/dL (76-180)
[2024-01-19 13:48] LABS: Glucose Tol Interp,Gestational INTERPRETATION
[2024-01-19 14:42] LABS: Glucose 2 Hour Gest 157 mg/dL (76-155)
[2024-01-19 14:42] LABS: Glucose 3 Hour Gest 111 mg/dL (76-140)
== END ==
PROVIDERS: PCP Family Medicine; Referring Provider Obstetrics & Gynecology; Visit Provider Obstetrics & Gynecology
DX: O99.810 Abnormal glucose complicating pregnancy (principal)
CPT/HCPCS: 36415; 82951; 82952

== ENCOUNTER → 2024-01-23 14:27 | Outpatient (CLI) | payer OTHER, MEDICAID, SELFPAY ==
--- NOTE | 2024-01-23 15:54 | DIAB.GDA ---
Initial Gestational Diabetes Assessment Name: Cathryn Williamson Date: 01/23/24 Time: 225-320p Dx: Gestational Diabetes Provider: Carlos PETER: 04/04/24 Weeks: 29 Cathryn presents for initial GDM visit via Portal telehealth platform. Denies any PMH of GDM. Denies any FH of Dm. Has been cutting back carb portions, mostly rice, to manage BG. Reports some reduced appetite in . Also reports loving fruit for snacks. Enjoys mostly Italian vegetables when she eats them, ie bok sonny, eggplant, bitter melon. Has two daughters ages 3 and 7 years. Currently with a girl. Diet Recall: 9-1030a: 1c rice with protein OR 1 toast with 2 eggs 1130-12: 1 banana and 3 strawberries 230p: 1/4-1/2c rice with meat +/- veggies 6p: 1/2c rice, meat, +/- veg, 1/2 benjie 7p: 1 kiwi Water x 3-3.5L, occasional cran juice, sometimes milk x 1c Anthropometrics: Ht: 62 Wt: 181 01/21/2024 at OB Prepregnancy wt: 170# Physical Activity: No program. Most activity from ADLs, ie cleaning and caring for children. Does walk 20 min round trip to daughter's bus stop. Self-Monitoring Blood Glucose: Just started checking FBG and 1 hour pc yesterday. All in range. 137mg/dl after breakfast was 1c rice. Today we discussed increased insulin resistance r/t hormones, especially in the morning. Date Pre Post Pre Post Pre Post HS 01/21 84 98 94 95 01/22 84 137 Diabetes Medications: None Pertinent Labs: Screen: 157mg/dl OGTT: 94, 193H, 157H, 111 Nutrition Rx: Carbohydrates: Daily: 175-185g Meal: 45-g lunch and dinner; 30g breakfast Snack: 15-30g Nutrition Diagnosis: Altered nutrition related lab value r/t GDM dx aeb recent OGTT Inconsistent protein intake r/t nutrition knowledge deficit aeb diet recall Intervention: This participant was very receptive. Provided appropriate educational handouts. Discussed the following topics: GDM pathophysiology and impact of hyperglycemia on mom and baby Risk for T2DM for mom and baby in the future Ways to reduce risk T2DM Plate Method, meal timing, carb counting, pairing macronutrients and spreading out CHO for better BG management Blood glucose goals (FBG: <95 and 1 hour <140 mg/dL); importance of checking 4x per day (FBG and pc) Impact of macronutrients on blood glucose Recommended servings for carbohydrates at meals and snacks Brainstormed appropriate meal plan based on her food preferences Role of physical activity and following provider guidelines for safety Goals: Pair CHO and pro at snacks Try 1c rice at lunch and dinner Aim for veggies 2x per day Continue BG checks 4x per day Follow-up: MEMO TAVERA follow-up in two weeks Tracy Hernandez RDN, AYSE Certified Diabetes Care and Housing Liaison T: [phone] F: [phone] [email or web address] Thank you for this referral
== END ==
LOC: DIET 14:28
PROVIDERS: PCP Family Medicine; Referring Provider Obstetrics & Gynecology
DX: O24.419 Gestational diabetes mellitus in pregnancy, unspecified control (principal); Z3A.29 29 weeks gestation of pregnancy; Z71.3 Dietary counseling and surveillance
CPT/HCPCS: 97802

== ENCOUNTER → 2024-02-13 08:47 | Outpatient (CLI) | payer OTHER, MEDICAID, SELFPAY ==
--- NOTE | 2024-02-13 09:28 | DIAB.GDFU ---
Follow-up Gestational Diabetes Assessment Name: Cathryn Williamson Date: 02/13/24 Time: 90a Dx: Gestational Diabetes Provider: Raad/Kaleb PETER: 04/04/24 Weeks: 32 Cathryn presents for initial GDM visit via Portal telehealth platform. Switched to whole grain options. Had previous reading of 137md/dl white rice. Switched to brown rice. Below ORTHO TECH of 175g CHO per day for due to her concern for BG, however pc readings often <100mg/dl. Reports h/o keto diet, which she reports she is incorporating this with minimal carb ie small portions brown rice or fruit. Reports >4oz protein at meals to make up for low CHO portions. Diet Recall: 9-: 1 toast with 2 eggs OR 1/2c oatmeal cooked, berries, ? banana, OR Boiled egg, spinach, berries 1220-0744: salmon, chicken, vegetable, 1/2c brown rice snack: handful nuts and berries OR nothing 530-6p: [place], eggs, vegetables Water 4-5x 400-500ml, occasional milk. Anthropometrics: Ht: 62 Wt: 183# 02/09/24 at OB 181 01/21/2024 at OB Prepregnancy wt: 170# Physical Activity: Physical activity: walking 20 min BID to bus stop for daughter Self-Monitoring Blood Glucose: All FBG in goal. All pc readings <140mg/dl for 1 hr readings, however ADA recs for 1 hour are 110-140mg/dl. Also overly restricting carbs for per diet recall. Date FBG Post Pre Post Pre Post notes 02/04 78 92 102 96 02/05 80 90 95 97 02/06 82 92 94 99 02/07 87 90 110 95 02/08 82 90 105 95 02/09 79 95 115 90 02/10 83 93 103 95 02/11 80 92 100 91 02/12 83 Diabetes Medications: None Pertinent Labs: Screen: 157mg/dl OGTT: 94, 193H, 157H, 111 Nutrition Rx: Carbohydrates: Daily: 175-185g Meal: 45-g lunch and dinner; 30g breakfast Snack: 15-30g Nutrition Diagnosis: Altered nutrition related lab value r/t GDM dx aeb recent OGTT Inconsistent protein intake r/t nutrition knowledge deficit aeb diet recall- improved Excessive protein intake r/t overly limiting CHO aeb diet recall- new Inadequate CHO intake r/t overly limiting for BG management aeb diet recall <175g CHO - new Intervention: This participant was very receptive. Provided appropriate educational handouts. Discussed the following topics: Recent blood sugar results Recs for nutrition Review of BG goals for GDM Review of macronutrient recommendations during Goals: Pair CHO and pro at snacks- met Try 1c rice at lunch and dinner - in progress Aim for veggies 2x per day- met Continue BG checks 4x per day- met Add back brown rice to dinner (2/3-1c)- new 2/3-1c brown rice at lunch- new Reduce protein at dinner a little to 3-4oz- new Follow-up: MEMO TAVERA follow-up in two weeks Tracy Hernandez RDN, AYSE Certified Diabetes Care and Solar Maintenance Technician T: [phone] F: [phone] [email or web address] Thank you for this referral
== END ==
LOC: DIET 08:55
PROVIDERS: PCP Family Medicine; Referring Provider Obstetrics & Gynecology
DX: O24.419 Gestational diabetes mellitus in pregnancy, unspecified control (principal); Z3A.32 32 weeks gestation of pregnancy; Z71.3 Dietary counseling and surveillance
CPT/HCPCS: 97803

== ENCOUNTER → 2024-03-03 10:45 | Outpatient (CLI) | payer OTHER, MEDICAID, SELFPAY ==
--- NOTE | 2024-03-03 13:03 | DIAB.GDFU ---
Follow-up Gestational Diabetes Assessment Name: Cathryn Williamson (Cathryn) Date: 03/03/24 Time: 120-145p Dx: Gestational Diabetes Provider: Raad/Kaleb PETER: 04/04/24 Weeks: 35 Cathryn presents for GDM visit via Portal telehealth platform. Scheduled for c section 03/29/24 Portions at dinner smaller per report due to satiety with meal/snack timing. Overall, CHO intake more adequate. having 1c brown rice at meals. BG more in range pc, versus <100mg/dl. Per pt, OB states she is measuring small in fundal ht. Has US scheduled for 03/08 for growth assessment. Unsure of subsequent pg plan Last child BF for 28 months States she gets her hgA1c checked annually with lipids. Diet Recall: a: 1 ww toast with eggs +/- with avocado OR just fruit OR 1c oats with berries 11a-12p: salmon, chicken, vegetable, 1c brown rice 3-4p: handful nuts and berries OR PB with ww bread + fruit 6-7p: Fish with vegetables and 1/2c brown rice Anthropometrics: Ht: 62 Wt: 182# 02/26/24 at OB 181 01/21/2024 at OB Prepregnancy wt: 170# Physical Activity: walking 20 min BID to bus stop for daughter Self-Monitoring Blood Glucose: All FBG in goal. All pc readings <140mg/dl for 1 hr readings. Date FBG Post Pre Post Pre Post notes 02/23 82 99 121 95 02/24 80 115 123 101 02/25 85 105 121 111 02/26 90 100 124 111 02/27 88 105 127 101 02/28 89 103 118 105 03/01 90 110 127 101 03/02 89 115 130 105 03/03 91 118 129 Diabetes Medications: None Pertinent Labs: Screen: 157mg/dl OGTT: 94, 193H, 157H, 111 Nutrition Rx: Carbohydrates: Daily: 175-185g Meal: 45-g lunch and dinner; 30g breakfast Snack: 15-30g Nutrition Diagnosis: Altered nutrition related lab value r/t GDM dx aeb recent OGTT Excessive protein intake r/t overly limiting CHO aeb diet recall- improved Inadequate CHO intake r/t overly limiting for BG management aeb diet recall <175g CHO - improved Intervention: This participant was very receptive. Provided appropriate educational handouts. Discussed the following topics: Recent blood sugar results and impact of food and hormones Review of macronutrient recommendations during Benefits, resources, and nutrition for recommendations for nutrition and physical activity recommendations for T2DM risk reduction OGTT at 6-12 weeks Checking blood sugars twice per week (goal: fasting <100 mg/dL and 2 hour pc <140 mg/dL) until 6 week check-up HgA1c q 1-3 years. Goals: Add back brown rice to dinner (2/3-1c)- improved 2/3-1c brown rice at lunch- met Reduce protein at dinner a little to 3-4oz- met Continue to aim for 45g CHO at meals- new Check BG 2x per week until 6 week OB visit- new OGTT at 6-12 week and hga1c q 1-3 years- new Follow-up: MEMO TAVERA follow-up prn Tracy Hernandez RDN, AYSE Certified Diabetes Care and Cmm Inspector T: [phone] F: [phone]
== END ==
PROVIDERS: PCP Family Medicine; Referring Provider Obstetrics & Gynecology
DX: O24.419 Gestational diabetes mellitus in pregnancy, unspecified control (principal); Z3A.35 35 weeks gestation of pregnancy; Z71.3 Dietary counseling and surveillance
CPT/HCPCS: 97803

== ENCOUNTER → 2024-03-08 08:56 | Outpatient (CLI) | payer OTHER, MEDICAID, SELFPAY ==
--- NOTE | 2024-03-08 09:00 | DI.US.S_ITS ---
PROCEDURE: US OB FOLLOW UP INDICATIONS: measuring smaller than gestational dating OUTSIDE/PRIOR DATING DATA: Last menstrual period (LMP): 06/12/2023. LMP-based estimated date of delivery (PETER): 03/18/2024. First dating scan (date and location): 08/25/2023. Estimated date of delivery (PETER) from first dating scan: 04/04/2024. TECHNIQUE: Real-time scanning was performed of the fetus, with image documentation and biometric measurements. COMPARISON: [facility], , OB >= 14 WEEKS FETUS, 11/18/2023, 10:35. FINDINGS: General: A single living intrauterine gestation is present. Presentation: Vertex. Placenta: Placental position is anterior , without previa. Amniotic fluid index: 10.5 cm, normal range is 5-24 cm. Single deepest vertical pocket is 4.4 cm. heart rate: 155 beats per minute. Maternal cervical canal: 2.8 cm long. Normal lower limit is 2.5 cm. biometrics: Biparietal diameter: 8.9 cm 36 weeks 1 day Head circumference: 32.9 cm 37 weeks 3 days Abdominal circumference: 34.0 cm 37 weeks 6 days Femur length: 7.0 cm 35 weeks 6 days Clinically estimated gestational age: 36 weeks 1 day Composite gestational age from present scan: 36 weeks 6 days Estimated weight and percentile: 338 g 79th percentile Other: Not applicable. IMPRESSION: Single live intrauterine with gestational age today of 36 weeks 6 days. MIREYA is within normal limits. We strive to produce accurate, complete, and clear reports of imaging services. To assist us in improving patient care, this report was composed using standard report templates and voice recognition software. Therefore, it may contain abnormal punctuation, insertions and/or omissions. Occasional wrong-word or sound-alike substitutions may occur. Though we review the report and make efforts to correct it, we do recommend that the report be read carefully in proper context to recognize any text inaccuracies. Dictated by: Shanda Richards M.D. on 03/08/2024 at 10:08 Approved by: Shanda Richards M.D. on 03/08/2024 at 10:10
== END ==
PROVIDERS: PCP Family Medicine; Referring Provider Student in an Organized Health Care Education/Training Program; Visit Provider Student in an Organized Health Care Education/Training Program
DX: O26.843 Uterine size-date discrepancy, third trimester (principal); Z3A.36 36 weeks gestation of pregnancy
CPT/HCPCS: 76816

== ENCOUNTER → 2024-03-11 10:32 | Outpatient (CLI) | payer OTHER, MEDICAID, SELFPAY ==
[2024-03-12 15:41] LABS: Strep Grp B PCR NEG for Grp B Strep
== END ==
PROVIDERS: PCP Family Medicine; Visit Provider Student in an Organized Health Care Education/Training Program
DX: Z34.03 Encounter for supervision of normal first pregnancy, third trimester (principal); Z3A.30 30 weeks gestation of pregnancy
CPT/HCPCS: 87653

== ENCOUNTER 2024-03-29 11:46 | Inpatient (IN) | payer OTHER, MEDICAID, SELFPAY ==
[2024-03-29 12:18] VITALS: BP 126/80
[2024-03-29] MEDS: LACTATED RINGERS 1,000 ML 999 ML IV (12:50)
[2024-03-29 12:51] LABS: Add Manual Diff / Slide Review NO; Basophils Absolute Auto 0 /uL (0-100); Basophils Percent Auto 0.5 % (0-2); Eosinophils Absolute Auto 100 /uL (0-450); Eosinophils Percent Auto 1.8 % (2-4); Hematocrit 31.3 % (36-46); Hemoglobin 10.6 g/dL (12.0-16.0); Lymphocytes Absolute Auto 1600 /uL (1100-4500); Lymphocytes Percent Auto 20.7 % (25-40); Mean Corpuscular Hemoglobin 29.9 PG (26-34); Mean Corpuscular Volume 87.9 fL (80-100); Monocytes Absolute Auto 500 /uL (0-900); Monocytes Percent Auto 6.9 % (3-14); Neutrophils Absolute Auto 5400 /uL (1500-7000); Neutrophils Percent Auto 70.1 % (50-75); Platelet Count 261 X10^3/uL (150-400); Red Blood Cell Count 3.55 X10^6/uL (4.0-5.2); Red Cell Distribution Width 14.6 % (11.6-14.8); White Blood Cell Count 7.7 X10^3/uL (4.5-11.0)
--- NOTE | 2024-03-29 13:40 | P.HPOB_ITS ---
OB HPI Date/Time Date of admission: 03/29/24 Date Patient Seen: 03/29/24 Time Patient Seen: 13:41 History of Present Condition Chief complaint: Repeat : 4 Para: 2 Estimated Date of Delivery: 04/04/24 Estimated Gestational Age (weeks): 39+1 Narrative: Cathryn Williamson is a 34 year old female Comments: presenting today for planned repeat . She reports feeling well, no concerns today. Blood glucose values have been within parameters. Denies ctx, leaking fluid, VB, or decreased FM. Indications Indication for induction OB: gestational diabetes Operative indications ( section): previous uterine surgery History of Present care: good care Dating criteria: LMP confirmed by 1st trimester US Ultrasounds: normal mid trimester US Obstetrical complications: gestational diabetes Narrative: (Radha Va) Size < dates at 34wks--> [x ] growth sono (ordered 02/25)- EFW 79%ile GDMA1 (1hr 157, 3hr 94/193/157/111)--> seeing inclusion paraeducator Hx of prior c/s x2 --> [x ] repeat c/s at 39wks (submitted 02/25) scheduled for 03/29 Obesity (pre-preg BMI 31) Rh negative --> [x] rhogam 28wks ? HSV (on prior documentation, pt denies hx of outbreaks)--> [x] HSV serology (+ HSV1 & HSV2); [ x] antiviral therapy at 36wks (started acyclovir) Travis Assigned to [facility] Preadmission Labs Blood type: 0 (-) negative -: Antibody screen: negative, Cystic fibrosis screen: unknown, GBS status: negative, HBsAG: negative, HIV: negative, HSV 1: positive, HSV 2: positive and RPR/VDLR: negative -: Chlamydia screen: not detected and Gonorrhea screen: not detected -: Rubella: immune and Varicella: immune HCT: 31.3 HCAB: negative PAP: Normal Quad screen: Normal 1 hr GTT: 157 3 hr GTT: 3 hr (positive ) Evaluation Evaluation Baseline heart rate: 140 Variability: Moderate (11-25) monitor accelerations: Present Monitor Decelerations: Absent Contraction Frequency (minutes): 0 Category of Tracing: Reactive [facility] Medical History (Updated 02/26/24 @ 10:07 by Ana Laura Manuel DO) Anemia affecting Lipoma of back GERD (gastroesophageal reflux disease) Easy bruisability Headache, migraine COVID-19 virus infection (10/23/20) No significant medical problems Surgical History Hx of emergency section (04/26/21) Hx of emergency section (03/21/16) Family History (Updated 08/27/23 @ 08:18 by Nan Parisi RN) Uncle Stomach cancer Heavy smoker Aunt Breast cancer Aunt Hypertension Uncle Hypertension Heart disease Heart attack Social History marital status: number of children: 2 household members: spouse and children lives independently: Yes caregiver/support person: Yes housing: house pets and animals: No education level: college (bachelor's degree) occupational status: unemployed current occupational exposures/hazards: No special sukhi needs: No travel history: over 6 months ago seatbelt use: always water heater temp set < 120 deg: Yes working smoke detector in home: Yes fire extinguisher in home: Yes carbon monox detector in home: Yes firearms in home: No do you feel safe at home: Yes Smoking Status: Never smoker second hand exposure: No (father was a chain smoker when she was a child) alcohol intake: former (occasional glass of wine when not ) substance use type: does not use during the past year weight has: increased > 10 lbs well-balanced diet: daily or most days daily servings fruits/ve or more times/day caffeine: No Type(s) of exercise: none Meds Home Medications and Allergies Home Medications Medication Instructions Recorded Confirmed Type cholecalciferol (vitamin D3) 50 50 mcg PO DAILY 08/27/23 03/29/24 History mcg (2,000 unit) capsule vitamin with calcium 1 tab PO DAILY 08/27/23 03/29/24 History no.72-iron 27 mg-folic acid 1 mg tablet ( Vitamins Plus Low Iron) blood sugar diagnostic (Blood #120 ea 01/21/24 03/24/24 Rx Glucose Test strips) blood-glucose meter (Blood Glucose #1 ea 01/21/24 03/24/24 Rx Monitoring kit) lancets #120 ea 01/21/24 03/24/24 Rx acyclovir 400 mg tablet 400 mg PO TID #70 tabs 02/26/24 03/29/24 Rx Allergies Allergy/AdvReac Type Severity Reaction Status Date / Time No Known Drug Allergies Allergy Verified 03/24/24 11:24 Review of Systems Review of Systems ROS: Yes All systems reviewed with the patient and are negative except as otherwise documented OB Exam Vital signs Blood Pressure: 126/80 Pulse Rate: 84 HENMT Head: normal to inspection Resp Effort & Inspection: normal respiratory effort and able to speak in complete sentences Cardio Rate: regular rate Rhythm: regular rhythm Extremities Lower extremity: Yes normal to inspection GI Other: gravid, nontender, nondistended Objective Labs 03/29/24 12:35 Labs: Laboratory Results - last 24 hr 03/29/24 12:35 WBC 7.7 RBC 3.55 L Hgb 10.6 L Hct 31.3 L MCV 87.9 MCH 29.9 MCHC 34.0 RDW 14.6 Plt Count 261 Neut % (Auto) 70.1 Lymph % (Auto) 20.7 L [place] % (Auto) 6.9 Eos % (Auto) 1.8 L Baso % (Auto) 0.5 Neut # (Auto) 5400 Lymph # (Auto) 1600 [place] # (Auto) 500 Eos # (Auto) 100 Baso # (Auto) 0 Blood Type O Negative Antibody Screen Negative Assessment and Plan Assessment and Plan Assessment and Plan narrative: 34yo at 39+1wks with PNC c/b GDMA1, hx of HSV, Rh negative, and obesity admitted for planned RLTCS. -CBC, T&S on admission -NST on admission -plan for neuraxial anesthesia -GBS neg -PPH risk moderate given anemia and hx of -VTE risk low, SCDs for prophylaxis -will move to OR for delivery once all teams ready consent: It was explained to the patient that a section is a surgery to deliver the baby through an incision in the abdominal wall and uterus.? All procedures can be associated with risk and unforeseen complications, which can be immediate or delayed.? Risks and complications of section include, but are not limited to:? infection of the uterus, pelvic organs, or skin; inadvertent injury to internal organs such as the bowel, bladder, or possibly even the baby; blood loss, transfusion, and/or life-threatening hemorrhage requiring hysterectomy; blood clots in the legs, pelvic organs, or lungs; adverse reaction to medications or anesthesia during surgery; development of placenta accreta spectrum in a subsequent ; and increased risk of section in a subsequent . Time Spent with Patient Total time spent with greater than 50% in coordination of care (as documented) at patient's floor/unit and/or counseling patient:: 15-24 minutes
[2024-03-29] MEDS: LACTATED RINGERS 1,000 ML 42 ML IV ×2 (13:44→16:24)
[2024-03-29 13:51] VITALS: BP 126/80; PULSE 84
[2024-03-29] MEDS: CITRIC ACID/SODIUM CITRATE 15 ML SOLUTION 30 ML PO (14:13)
[2024-03-29] MEDS: CEFAZOLIN 2 GM/100 ML PREMIX 100 ML IV (14:27)
[2024-03-29] MEDS: ACETAMINOPHEN IV 1,000 MG/100 ML VIAL 400 MG IV (14:45)
--- NOTE | 2024-03-29 15:05 | SUR.OPER ---
Supine on padded OR bed, head on pillow, arms secured on padded arm boards at <90 degrees abduction, legs uncrossed, safety belt at thigh, tape over blanket over lower legs.
[2024-03-29] MEDS: TRANEXAMIC ACID 1,000 MG in SODIUM CHLORIDE 0.9% 100 ML 200 MG IV (15:44)
--- NOTE | 2024-03-29 15:44 | SUR.OPER ---
VIABLE DELIVERED AT 1513. 3G PEERCLOT APPLIED AT OP SITE. EXP DATE 03/15/2025
[2024-03-29 16:18] VITALS: BP 116/68; PULSE 68; RESP 16; O2SAT 99
--- NOTE | 2024-03-29 16:18 | P.OP_ITS ---
Operative Date/Time/Diagnoses Date of procedure: 03/29/24 Time of procedure: 14:45 Pre-op diagnosis: 1. Guerra intrauterine gestation at 39+1wks 2. History of previous section 3. Gestational diabetes, class A1 4. Rh negative status 5. Obesity 6. History of herpes simplex virus Post-op diagnosis: same (delivered via repeat low transverse section) Procedure & Clinicians Procedure: Repeat low transverse section Same procedure as scheduled: Yes Indications: 34yo at 39+1wks admitted for planned repeat low transverse section. Surgeon: Ana Laura Manuel Click Yes if Unassisted: No Senior Grants Officer: Nilda Orellana Reason for Senior Grants Officer: Senior Grants Officer was necessary for timely, efficient, and safe completion of the procedure. Anesthesia Type: Spinal Operative Notes Findings: Normal-appearing uterus and bilateral fallopian tubes and ovaries. Clear fluid noted with delivery. Delivery productive of a viable female in cephalic presentation with APGARs 9/9 and weighing 3172g. Closure Type: primary Specimen(s): cord blood Intraoperative meds administered: Duramorph, Ketorolac and Tranexamic acid Applied: Catheter Estimated Blood Loss (mL): 800 Blood products transfused: none Procedure in detail: The risks, benefits, indications and alternatives of the procedure were reviewed with the patient and informed consent was obtained. The patient was taken to the operating room where spinal anesthesia was obtained without difficulty and was found to be adequate. Sequential compression devices were placed bilaterally for VTE prophylaxis. She was then prepped and draped in the normal, sterile fashion in the dorsal supine position with a leftward tilt. She received 2g Ancef for surgical prophylaxis. A Pfannenstiel skin incision was then made with the scalpel and carried through to the underlying layer of fascia. The fascia was incised in the midline and the incision extended laterally with the Mukherjee scissors. The superior aspect of the fascial incision was grasped, tented up with [place] clamps and the rectus muscles were dissected off sharply. The rectus muscles were then at the midline. The peritoneum was identified, and entered sharply. The peritoneal incision was then extended ho rizontally, superiorly and inferiorly, with good visualization of the bladder. The Marty retractor was then inserted. The lower uterine segment was incised in a transverse fashion with the scalpel. The uterine incision was then extended manually in a cephalad/caudad direction. The amniotic sac was artificially ruptured, productive of clear fluid. The infant?s head delivered atraumatically through the hysterotomy without difficulty, followed by the body.? The cord was doubly clamped and cut after a 60sec delay with the infant handed off to the waiting pediatrics team. The placenta was then removed spontaneously with gentle traction on the umbilical cord. The uterus was then left in-situ and cleared of all clots and debris. The uterine incision was repaired with 0-vicryl in a running, locked fashion. The right side of the hysterotomy continued to bleed, thus several sutures were placed using 0-monocryl, including a modified O'Indore suture, which were finally successful in achieving hemostasis. Care was made to ensure the sutures did not go through the back of the broad ligament. The hysterotomy was again inspected and noted to be hemostatic. The paracolic gutters were cleared of all clot and debris. The Marty retractor was then removed. PerClot hemostatic powder was applied along the hysterotomy and the rectus sheath. The patient also received 1g TXA for additional hemostasis. The fascia was reapproximated with 0-vicryl in a running fashion. The subcutaneous layer was closed with 3-0 vicryl in simple, interrupted sutures. The skin was closed with 4-0 monocryl in a subcuticular fashion. The incision was then dressed with steri-strips and a pressure dressing was applied. At the completion of the case, a Crede maneuver was performed with good uterine tone and minimal vaginal bleeding noted.? The patient tolerated the procedure well. Sponge, lap and needle counts were correct x3. The patient was taken to the recovery room in stable condition. Complications: none Post-operative Condition: stable Disposition: PACU Aftercare: routine postop
[2024-03-29 16:23] VITALS: BP 106/68; BP 121/65; PULSE 63; PULSE 68; RESP 16; RESP 17; O2SAT 98; O2SAT 99
[2024-03-29] MEDS: ONDANSETRON 4 MG/2 ML INJ IV (18:08)
[2024-03-29] MEDS: LANOLIN OINT 7 GM 1 APPLIC TOP (18:19)
[2024-03-29] MEDS: ACETAMINOPHEN 325 MG TABLET 650 MG PO (20:41)
[2024-03-29] MEDS: METOCLOPRAMIDE 10 MG/2 ML INJ IV (21:50)
[2024-03-29] MEDS: KETOROLAC 30 MG/ML VIAL IV (22:50)
[2024-03-30 02:19] VITALS: BP 136/85; PULSE 92; RESP 16; TEMP 36.9
[2024-03-30] MEDS: ACETAMINOPHEN 325 MG TABLET 650 MG PO ×4 (04:26→22:55)
[2024-03-30] MEDS: KETOROLAC 30 MG/ML VIAL IV ×2 (05:14→11:10)
[2024-03-30 06:53] LABS: Add Manual Diff / Slide Review NO; Basophils Absolute Auto 0 /uL (0-100); Basophils Percent Auto 0.3 % (0-2); Eosinophils Absolute Auto 100 /uL (0-450); Eosinophils Percent Auto 0.9 % (2-4); Hematocrit 24.9 % (36-46); Hemoglobin 8.6 g/dL (12.0-16.0); Lymphocytes Absolute Auto 1100 /uL (1100-4500); Lymphocytes Percent Auto 14.4 % (25-40); Mean Corpuscular HGB Conc 34.4 % (30-36); Mean Corpuscular Hemoglobin 30.1 PG (26-34); Mean Corpuscular Volume 87.6 fL (80-100); Monocytes Absolute Auto 600 /uL (0-900); Monocytes Percent Auto 8.3 % (3-14); Neutrophils Absolute Auto 5700 /uL (1500-7000); Neutrophils Percent Auto 76.1 % (50-75); Platelet Count 208 X10^3/uL (150-400); Red Blood Cell Count 2.84 X10^6/uL (4.0-5.2); White Blood Cell Count 7.5 X10^3/uL (4.5-11.0)
[2024-03-30] MEDS: PRENATAL VIT,CALC/IRON/FOLIC 1 TABLET 1 TAB PO (09:50)
[2024-03-30] MEDS: DOCUSATE 100 MG CAPSULE PO (09:50)
[2024-03-30] MEDS: FERROUS SULFATE 325 MG TABLET PO (09:50)
--- NOTE | 2024-03-30 10:30 | P.PNOB_ITS ---
Subjective - OB Subjective Patient comments: no complaints [place] baby status: doing well [place] feeding status: exclusively breast feeding Date Patient Seen: 03/30/24 Time Patient Seen: 10:31 Interval history: Cathryn is doing well this morning, pain well controlled. Has ambulated without dizziness or lightheadedness. Her barrera was d/c this morning, and she has yet to void. well. Exam Vital Signs (past 8 hours): Oxygen Delivery Method Room Air vitals reviewed in OBIX, within normal parameters Const General: comfortable and No acute distress Resp Effort & Inspection: normal respiratory effort and able to speak in complete sentences GI Inspection: normal to inspection Palpation: soft Other: appropriately tender, bandage removed, incision c/d/i with steri-strips in place Skin General: no rashes or lesions noted Neuro Cognition: normal cognition Speech: speech normal Extrem General: normal to inspection and no calf tenderness Psych Mood: congruent mood Affect: normal affect Objective Labs 03/30/24 06:35 Labs: Laboratory Results - last 24 hr 03/29/24 03/30/24 12:35 06:35 WBC 7.7 7.5 RBC 3.55 L 2.84 L Hgb 10.6 L 8.6 L Hct 31.3 L 24.9 L MCV 87.9 87.6 MCH 29.9 30.1 MCHC 34.0 34.4 RDW 14.6 15.0 H Plt Count 261 208 Neut % (Auto) 70.1 76.1 H Lymph % (Auto) 20.7 L 14.4 L [place] % (Auto) 6.9 8.3 Eos % (Auto) 1.8 L 0.9 L Baso % (Auto) 0.5 0.3 Neut # (Auto) 5400 5700 Lymph # (Auto) 1600 1100 [place] # (Auto) 500 600 Eos # (Auto) 100 100 Baso # (Auto) 0 0 Blood Type O Negative Antibody Screen Negative Maternal Bleed Negative Assessment & Plan Assessment and Plan (1) delivery, delivered, current hospitalization: Status: Acute (2) Postoperative anemia due to acute blood loss: Status: Acute (3) GDM (gestational diabetes mellitus), class A1: Status: Acute (4) Rh negative state in antepartum period: Status: Acute Plan day: 1 plan OB: routine care Comments: 34yo [id number] POD#1 s/p RLTCS with EBL 800cc. Her H/H noted to have an appropriate drop from her preop. -continue to monitor for symptoms of anemia; continue oral iron supplementation -encouraged to continue ambulation today -follow-up due to void -plan for continued routine care today, with discharge in the morning Time Spent With Patient Time: Total time spent is greater than 50% in coordination of care (as documented) at patient's floor/unit and/or counseling patient: Time with patient: 15-24 minutes
[2024-03-30] MEDS: IBUPROFEN 600 MG TABLET PO ×2 (16:42→22:55)
[2024-03-30] MEDS: RHO(D) IMMUNE GLOBULIN 1,500 UNIT SYRINGE 1500 UNIT IM (17:05)
[2024-03-31] MEDS: IBUPROFEN 600 MG TABLET PO ×2 (05:11→10:46)
[2024-03-31] MEDS: ACETAMINOPHEN 325 MG TABLET 650 MG PO ×2 (05:11→10:45)
--- NOTE | 2024-03-31 08:54 | P.DS_ITS ---
Discharge Providers Provider Date of admission: 03/29/24 11:46 Discharge Date: 03/31/24 Primary care physician: Jayna Virgen MD Consults: 03/29/24 16:55 Consult to Director Instrumentation Routine Comment: Discharge provider: Matt Shankar MD Summary Hospital Course Date Patient Seen: 03/31/24 Time Patient Seen: 08:54 Diagnoses: Intrauterine , 39+ 1 weeks gestational age, delivered by repeat section Prior section x1 Rh-negative status Gestational diabetes, type A1 History of genital HSV, on daily prophylaxis Acute anemia due to operative blood losses Hospital Course: Cathryn was admitted on the morning of 03/29/2024 and underwent an uneventful repeat section. Complete details of the procedure well summarized on Dr. Manuel' operative note of that date. Following delivery both mother and have done extremely well with the mother experiencing prompt return of bowel and bladder function, she is ambulating independently, tolerating regular diet, and her pain is well relieved with oral pain medications. She will be discharged at this time to home in an afebrile normotensive condition after counseling regarding precautionary symptoms, limitations of activity, medications, and plans for follow-up which will be in 1 week. Medications at discharge will include resumption of pre delivery medications along with ibuprofen 600 mg p.o. q.6 hours as needed for pain, dispense 30 with 2 refills, oxycodone 5 mg p.o. q.6 hours as needed for pain, dispense 12 with no refills, and iron with vitamin-C daily times 30 days. Peripartum Data Delivery Method: Section Laceration Description: None Episiotomy description: None Procedures: Spinal block anesthetic Repeat section complications: none [place] 1: Gender: Female Disposition of : home Discharge Diagnosis (1) delivery, delivered, current hospitalization: Status: Acute (2) Postoperative anemia due to acute blood loss: Status: Acute (3) GDM (gestational diabetes mellitus), class A1: Status: Acute (4) Rh negative state in antepartum period: Status: Acute Status at Discharge Cognitive/behavioral status at discharge: oriented Functional status at discharge: independent ambulation Overall status at discharge: patient is progressing back to baseline Time Spent with Patient Time attestation: Total time spent providing and/or coordinating discharge services: Time spent: Less than 30 minutes Objective Labs 03/30/24 06:35 Exam Vital Signs (past 8 hours): Oxygen Delivery Method Room Air Const General: cooperative and comfortable Nutritional Appearance: average body habitus Orientation: alert and oriented x3 HENMT Head: normal to inspection, atraumatic and abrasion Ears: hearing grossly normal bilaterally Face and sinus: face symmetric Eyes General: appearance normal, both eyes and all related structures Conjunctivae: conjunctivae normal Sclera: sclerae normal EOM: EOM intact bilaterally Neck Neck: normal visual inspection Resp Effort & Inspection: normal respiratory effort and able to speak in complete sentences Auscultation: clear to auscultation bilaterally Cardio Rate: regular rate Rhythm: regular rhythm Heart Sounds: S1 normal, S2 normal and no murmurs GI Inspection: normal to inspection and incision (Incision clean and dry) Palpation: soft, no hepatosplenomegaly and tender (Mild, diffuse postsurgical tenderness) External Female Exam: other (No significant bleeding noted) Extrem General: no calf tenderness Psych Appearance: grossly normal Mental Status: mental status grossly normal Speech and Movement: speech and movement normal Mood: congruent mood Affect: normal affect Attitude: cooperative Thought Process: normal Thought Content: normal Judgment: judgment good Discharge Plan Discharge Plan Patient Disposition: Home Provider Discharge Comment: Please review the written instructions you received when you were discharged from the hospital. Your follow-up appointment is scheduled for 1 week after your and we look forward to seeing you then. If however in the meanwhile you have any issues, concerns, or questions, please contact the office either by phone at [phone], or via the patient portal. Discharge orders & Medications Prescriptions: New ibuprofen 600 mg Tablet 600 mg PO Q6H Qty: 30 2RF oxycodone 5 mg Tablet 5 mg PO Q6H PRN (Reason: Pain, Moderate (4-6)) Qty: 12 0RF Continued Vitamin Plus Low Iron 27 mg iron- 1 mg tablet 1 tab PO DAILY cholecalciferol (vitamin D3) 50 mcg (2,000 unit) capsule 50 mcg PO DAILY Discontinued acyclovir 400 mg tablet 400 mg PO TID Qty: 70 0RF No Action (DME) Blood Glucose Test Strip See Rx Instructions .ROUTE .MEDSUPPLY Qty: 120 3RF Rx Instructions: Testing blood sugars fasting and 2 hr PP. 4x daily (DME) lancets Misc See Rx Instructions .ROUTE .MEDSUPPLY Qty: 120 3RF Rx Instructions: Testing blood sugars fasting and 2 hr PP. 4x daily (DME) blood-glucose meter [Blood Glucose Monitoring] Kit See Rx Instructions .ROUTE .MEDSUPPLY Qty: 1 0RF Rx Instructions: Testing fasting and 2 hr PP blood sugars 4x daily Medication counseling provided by Pharmacist: No Follow up/Referrals: Jayna Virgen MD [Primary Care Provider] - Ana Laura Manuel DO [Physician] - (Incision check on 04/06/2024 @ 3pm Post 6 week appt on 05/14/2024 @ 11am) Discharge Health Status Multidrug resistant organism: No MDRO Diet/Activity/Treatments Diet: Diet as Tolerated Activity: As tolerated Other treatments: [id number]-poh-kthufjp Tylenol and/or ibuprofen may be used for additional pain relief. Fafe-kwg-xawaack stool softeners and/or MiraLax may be used as needed for constipation. Skin/Wound/Dressing Care Report to your healthcare provider any signs of infection, such as:: chills, fever, increased pain, unusual drainage and unusual redness Visit Report/Discharge Packet Instructions: DI for , DI for and Nipple Soreness, DI for Prescription Opioid Use Discharge Data Primary Care Provider: Jayna Virgen
[2024-03-31] MEDS: PRENATAL VIT,CALC/IRON/FOLIC 1 TABLET 1 TAB PO (09:40)
[2024-03-31] MEDS: FERROUS SULFATE 325 MG TABLET PO (09:40)
[2024-03-31] MEDS: DOCUSATE 100 MG CAPSULE PO (09:40)
== END 2024-03-31 11:15 | disposition home or self-care (01) | DRG 540 ==
PROVIDERS: Admitting Provider Student in an Organized Health Care Education/Training Program; PCP Family Medicine; Referring Provider Student in an Organized Health Care Education/Training Program; Visit Provider Student in an Organized Health Care Education/Training Program
PROC: 10D00Z1 Extraction of Products of Conception, Low, Open Approach (ICD-10-PCS; CPT 59514; principal; 2024-03-29 14:00)
DX: O34.211 Maternal care for low transverse scar from previous cesarean delivery (principal); Z3A.39 39 weeks gestation of pregnancy; Z37.0 Single live birth; O99.214 Obesity complicating childbirth; O98.32 Other infections with a predominantly sexual mode of transmission complicating childbirth; A60.9 Anogenital herpesviral infection, unspecified
CPT/HCPCS: 36415; 59050; 82962; 85025; 85461; 86850; 86900; 86901; J0136; J0690; J1885; J2274; J2405; J2704; J2765; J2790; J3010

== ENCOUNTER → 2024-11-01 13:12 | Outpatient (CLI) | payer OTHER, SELFPAY ==
--- NOTE | 2024-11-01 13:40 | DI.US.S_ITS ---
PROCEDURE: US THYROID INDICATIONS: abnormal TSH levels TECHNIQUE: Real-time scanning was performed of the thyroid gland, with image documentation. COMPARISON: None. FINDINGS: Thyroid: Right lobe measures 6.3 x 1.6 x 1.9 cm. Left lobe measures 5.5 x 1.7 x 1.8 cm. Isthmus is 0.4 cm thick. Echotexture is slightly heterogenous. Nodule number: 1 Location: Right inferior lobe Size: 0.9 x 0.8 x 0.9 cm. Composition: Solid Echogenicity: Isoechoic Shape: wider than tall. Margins: Smooth Echogenic foci: None Total points: 3 ACR TI-RADS category: TR 3 Nodule number: 2 Location: Left superior lobe Size: 1.2 x 0.6 x 1.2 cm. Composition: Solid Echogenicity: Isoechoic Shape: wider than tall. Margins: Smooth Echogenic foci: None Total points: 3 ACR TI-RADS category: TR 3 IMPRESSION: 1. Bilateral thyroid nodules, for which no further follow-up is necessary. 2. Mildly heterogenous and enlarged appearance of the thyroid gland, which can be seen with thyroid goiter. ACR TI-RADS definitions and recommendations: TI-RADS 1 (benign): 0 points. FNA not needed. TI-RADS 2 (not suspicious): 2 points. FNA not needed. TI-RADS 3: 3 points. * FNA if 2.5 cm or larger, follow up if 1.5 cm or larger (at 1, 3, and 5 years). TI-RADS 4: 4-6 points. * FNA if 1.5 cm or larger, follow up if 1 cm or larger (at 1, 2, 3, and 5 years). TI-RADS 5: 7 points or more. * FNA if 1 cm or larger, follow up if 0.5 cm or larger (every year for 5 years). Dictated by: Shahid Larkin M.D. on 11/01/2024 at 15:21 Approved by: Shahid Larkin M.D. on 11/01/2024 at 15:25
== END ==
PROVIDERS: PCP Family Medicine; Referring Provider Family Medicine; Visit Provider Family Medicine
DX: R79.89 Other specified abnormal findings of blood chemistry (principal); E04.2 Nontoxic multinodular goiter
CPT/HCPCS: 76536

== ENCOUNTER → 2025-09-02 15:10 | Outpatient (CLI) | payer OTHER, SELFPAY ==
--- NOTE | 2025-09-02 15:11 | DI.US.S_ITS ---
PROCEDURE: US OB <= 14 WEEKS FETUS INDICATIONS: DATES OUTSIDE/PRIOR DATING DATA: First dating scan (date and location): 09/02/2025. Estimated date of delivery (PETER) from first dating scan: 03/15/2026. TECHNIQUE: Real-time scanning was performed of the fetus and maternal pelvic organs, with image documentation. Endovaginal scanning was also performed to better visualize the fetus and maternal ovaries. COMPARISON: [facility], US, OB <= 14 WEEKS FETUS, 09/10/2023, 9:34. FINDINGS: Embryo: Single intrauterine with measurements consistent with 12 weeks and 2 days. Heart rate: 162 beats per minute Maternal organs: Ovaries are not seen. IMPRESSION: Single live intrauterine consistent with 12 weeks and 2 days. We strive to produce accurate, complete, and clear reports of imaging services. To assist us in improving patient care, this report was composed using standard report templates and voice recognition software. Therefore, it may contain abnormal punctuation, insertions and/or omissions. Occasional wrong-word or sound-alike substitutions may occur. Though we review the report and make efforts to correct it, we do recommend that the report be read carefully in proper context to recognize any text inaccuracies. Dictated by: Harley Sethi M.D. on 09/02/2025 at 17:11 Approved by: Harley Sethi M.D. on 09/02/2025 at 17:13
== END ==
LOC: US 15:11
PROVIDERS: PCP Family Medicine; Referring Provider Family Medicine; Visit Provider Family Medicine
DX: Z32.01 Encounter for pregnancy test, result positive (principal); Z3A.12 12 weeks gestation of pregnancy
CPT/HCPCS: 76801

== ENCOUNTER → 2025-09-16 12:09 | Outpatient (CLI) | payer OTHER, SELFPAY ==
[2025-09-16 16:21] LABS: Urine N gonorrhoeae NOT DETECTED
[2025-09-16 16:22] LABS: Urine Chlamydia NOT DETECTED
== END ==
PROVIDERS: PCP Family Medicine; Visit Provider Obstetrics & Gynecology
DX: Z11.3 Encounter for screening for infections with a predominantly sexual mode of transmission (principal)
CPT/HCPCS: 87491; 87591

== ENCOUNTER → 2025-09-16 12:58 | Outpatient (CLI) | payer OTHER, SELFPAY ==
[2025-09-16 13:20] LABS: Add Manual Diff / Slide Review NO; Hematocrit 37.1 % (36-46); Hemoglobin 12.8 g/dL (12.0-16.0); Lymphocytes Absolute Auto 2300 /uL (1100-4500); Mean Corpuscular HGB Conc 34.6 % (30-36); Mean Corpuscular Hemoglobin 30.1 PG (26-34); Mean Corpuscular Volume 87.1 fL (80-100); Platelet Count 265 X10^3/uL (150-400)
[2025-09-16 13:37] LABS: Hemoglobin A1C% w Est Avg Glu 5.1 % (4.0-6.0)
[2025-09-16 14:03] LABS: Natera Collection Specimen Collected
[2025-09-17 16:25] LABS: Hepatitis B Surface Antigen NEGATIVE s/c (NEGATIVE)
[2025-09-17 16:41] LABS: HIV 1 & 2 Ab/Ag 4th Gen Combo NEGATIVE (NEGATIVE); Hep C Virus Ab w/Reflex Quant NEGATIVE s/c (NEGATIVE)
== END ==
PROVIDERS: PCP Family Medicine; Referring Provider Obstetrics & Gynecology; Visit Provider Obstetrics & Gynecology
DX: O09.512 Supervision of elderly primigravida, second trimester (principal); O09.899 Supervision of other high risk pregnancies, unspecified trimester; Z86.32 Personal history of gestational diabetes; Z36.0 Encounter for antenatal screening for chromosomal anomalies
CPT/HCPCS: 36415; 80055; 83036; 86787; 86803; 86850; 86900; 86901; 87389